=== PATIENT | male | born 1955 | race Caucasian/White ===

== ENCOUNTER 2016-11-27 09:29 | Day surgery (SDC) | payer BC ==
[~2016-11-27 09:29] MED LIST: Lactated Ringers 1,000 ML IV SCH; Midazolam 1 MG/ML 2 ML SDV ONE; Ondansetron 4 MG/2 ML SDV ONE; Propofol 200 MG/20 ML SDV ONE; Sodium Chloride 0.9% 10 ML Syringe FLUSH PRN; Sodium Chloride 0.9% 2.5 ML Syringe FLUSH PRN; fentaNYL 100 MCG/2 ML SDV ONE
--- NOTE | 2016-11-27 10:56 | PCM.PREANE ---
Preanesthetic Assessment - Anesthesia/Transfusion/Family Hx Anesthesia History: Prior Anesthesia Without Reaction Family History of Anesthesia Reaction: No Transfusion History: No Prior Transfusion(s) Intubation History: Unknown - Review of Systems General: No Symptoms Pulmonary: No Symptoms Cardiovascular: No Symptoms Gastrointestinal: Abdominal Pain Neurological: No Symptoms Other: Reports: None - Physical Assessment O2 Sat by Pulse Oximetry: 93 Respiratory Rate: 16 Vital Signs: Last Vital Signs Temp 36.2 C 11/27/16 10:20 Pulse 74 11/27/16 10:20 Resp 16 11/27/16 10:20 BP 151/74 H 11/27/16 10:20 Pulse Ox 93 L 11/27/16 10:20 Height: 1.78 m Weight: 125.192 kg ASA Class: 2 Mental Status: Alert & Oriented x3 Airway Class: Mallampati = 2 Dentition: Reports: Normal Dentition Thyro-Mental Finger Breadths: 2 Mouth Opening Finger Breadths: 3 ROM/Head Extension: Full Lungs: Clear to Auscultation, Normal Respiratory Effort Cardiovascular: Regular Rate, Regular Rhythm - Allergies Allergies/Adverse Reactions: Allergies Allergy/AdvReac Type Severity Reaction Status Date / Time No Known Allergies Allergy Verified 11/25/16 12:19 - Blood Blood Available: No - Anesthesia Plan Pre-Op Medication Ordered: None - Acknowledgements Anesthesia Type Planned: MAC Pt an Appropriate Candidate for the Planned Anesthesia: Yes Alternatives and Risks of Anesthesia Discussed w Pt/Guardian: Yes Pt/Guardian Understands and Agrees with Anesthesia Plan: Yes PreAnesthesia Questionnaire Other HEENT History: wears glasses Cardiovascular History: Reports: High Cholesterol, Hypertension Respiratory History: Reports: Sleep Apnea Other Respiratory History: uses CPAP Genitourinary History: Reports: BPH Neurological History: Reports: Brain Injury Other Neuro History: closed head injury 5 years ago with brain bleed Endocrine/Metabolic History: Reports: Diabetes, Type II, Obesity/BMI 30+ - Past Surgical History GI Surgical History: Reports: Hernia, Abdominal Other GI Surgeries/Procedures: Umbilical hernia repair - SUBSTANCE USE Smoking Status *Q: Never Smoker Recreational Drug Use History: No - HOME MEDS Home Medications: Home Meds Fenofibrate Nanocrystallized [Fenofibrate] 145 mg PO DAILY 11/25/16 [History] Olmesartan/Amlodipin/Hcthiazid [Dximyvt-Oqribz-Bpja 40-10-25Mg] 1 tab PO DAILY 10/17/17 [History] Tamsulosin HCl 2 tab PO DAILY 11/25/16 [History] sitaGLIPtin Phos/Metformin HCl [Janumet 50-1,000 MG] 1 tab PO BID 11/25/16 [ History] - CURRENT (IN HOUSE) MEDS Current Meds: Current Medications Lactated Ringer's (Ringers, Lactated) 1,000 mls @ 125 mls/hr IV ASDIRECTED VARINDER Last Admin: 11/27/16 10:22 Dose: 125 mls/hr Sodium Chloride (Saline Flush) 10 ml FLUSH ASDIRECTED PRN PRN Reason: Keep Vein Open Sodium Chloride (Saline Flush) 2.5 ml FLUSH ASDIRECTED PRN PRN Reason: Keep Vein Open Discontinued Medications Fentanyl (Sublimaze) Confirm Administered Dose 100 mcg .ROUTE .STK-MED ONE Stop: 11/27/16 08:33 Lidocaine HCl (Xylocaine-Mpf 1%) Confirm Administered Dose 5 ml .ROUTE .STK-MED ONE Stop: 11/27/16 08:32 Midazolam HCl (Versed 1 Mg/Ml) Confirm Administered Dose 2 mg .ROUTE .STK-MED ONE Stop: 11/27/16 08:33 Ondansetron HCl (Zofran) Confirm Administered Dose 4 mg .ROUTE .STK-MED ONE Stop: 11/27/16 08:32 Propofol (Diprivan 20 Ml) Confirm Administered Dose 400 mg .ROUTE .STK-MED ONE Stop: 11/27/16 08:33
--- NOTE | 2016-11-27 14:33 | PCM.OPNOTE ---
- General Post-Op/Procedure Note Date of Surgery/Procedure: 11/27/16 Operative Procedure(s): Colonoscopy Findings: Diverticulosis throughout colon. 1 descending colon polyp Pre Op Diagnosis: Change in bowel habits Post-Op Diagnosis: Diverticulosis throughout colon, 1 descending colon polyp Anesthesia Technique: MAC Primary Surgeon: Sadie Bonilla Condition: Good
--- NOTE | 2016-11-27 14:56 | PCM.POSTAN ---
POST ANESTHESIA ASSESSMENT - MENTAL STATUS Mental Status: Alert - RESPIRATORY Respiratory Status: Respiratory Rate WNL, Airway Patent, O2 Saturation Stable - CARDIOVASCULAR CV Status: Pulse Rate WNL, Blood Pressure Stable - GASTROINTESTINAL GI Status: No Symptoms - PAIN Pain Score: 0 - POST OP HYDRATION Hydration Status: Adequate & Stable - OBSERVATIONS Free Text/Narrative:: no anesthesia problems
--- NOTE | 2016-11-28 14:22 | OR ---
SURGEON: MELANIA MAYBERRY MD DATE OF PROCEDURE: 11/27/2016 PREOPERATIVE DIAGNOSIS: Change in bowel habits. POSTOPERATIVE DIAGNOSES: 1. Diverticulosis. 2. One descending colon polyp. PROCEDURE PERFORMED: Diagnostic colonoscopy. INSTRUMENT USED: Olympus colonoscope. ANESTHESIA: MAC. EXTENT OF EXAM: To the cecum. PREPARATION: Good. LIMITATIONS: None. INDICATIONS FOR EXAMINATION: The patient is a 61-year-old male with complaints of intermittent abdominal discomfort associated with cramping and flatulence. He denies any family history of colon cancer or inflammatory bowel disease. The patient was consented for a diagnostic colonoscopy. We discussed the procedure as well as expected perioperative course. We discussed the risks, including bleeding, infection, or damage to surrounding structures, including perforation. The patient verbalized understanding and wishes to proceed. PROCEDURE IN DETAIL: The patient was brought into the endoscopy suite and placed in the left lateral decubitus position. A time-out was completed verifying the patient's name, age, date of , allergies, and procedure to be performed. Monitored anesthesia care was induced and continuous oxygen was provided via nasal cannula throughout the procedure. After adequate sedation was achieved, a digital rectal exam was performed. This examination was within normal limits. A well lubricated colonoscope was inserted into the rectum and advanced under direct visualization to the level of the low cecum. The cecum was identified by both visual and anatomic landmarks. A photograph was taken of the cecal cap; however, I was unable to retroflex the scope within the cecum. The scope was then fully withdrawn while examining the color, texture, anatomy, and integrity of the mucosa from the cecum to the anal canal. The findings were consistent with diverticulosis throughout the colon. The patient also had one small sessile descending colon polyp, which was removed in piecemeal fashion via a cold biopsy forceps. The scope was then brought into the rectum and retroflexed to allow visualization of the anal canal opening. This appeared normal and a photograph was taken. The scope was then straightened out and withdrawn. The cecum to anus time was 22 minutes. The patient tolerated the procedure well and was taken to PACU in stable condition. ENDOSCOPIC DIAGNOSES: 1. Diverticulosis. 2. Descending colon polyp. RECOMMENDATION: Follow up in clinic in 2 weeks. YUVAL LIU /[id number]
== END 2016-11-27 15:14 | disposition home or self-care (01) ==
LOC: MW.SDS 09:29
PROVIDERS: ATTEND Surgery
DX: K63.5 Polyp of colon (principal); K57.30 Diverticulosis of large intestine without perforation or abscess without bleeding; N40.0 Benign prostatic hyperplasia without lower urinary tract symptoms; E11.9 Type 2 diabetes mellitus without complications; G47.33 Obstructive sleep apnea (adult) (pediatric); E66.9 Obesity, unspecified; Z79.84 Long term (current) use of oral hypoglycemic drugs; Z79.899 Other long term (current) drug therapy; Z98.890 Other specified postprocedural states; Z99.89 Dependence on other enabling machines and devices; Z68.39 Body mass index [BMI] 39.0-39.9, adult
CPT/HCPCS: 45380; 88305; J2250; J2405; J3010; J7120; 00810; J2704

== ENCOUNTER 2019-01-12 14:22 | Inpatient (IN) | payer BC ==
[2019-01-12] MEDS ORDERED: Ondansetron 4 MG/2 ML SDV IVPUSH PRN (14:30)
[2019-01-12] MEDS ORDERED: Acetaminophen 325 MG Tab PO PRN (14:30)
[2019-01-12] MEDS ORDERED: Ondansetron 4 MG Tab.DIS PO PRN (14:30)
--- NOTE | 2019-01-12 14:52 | PCM.HP.2 ---
H&P History of Present Illness - General Date of Service: 01/12/19 Admit Problem/Dx: Admission Diagnosis/Problem Admission Diagnosis/Problem Hypoxia Source of Information: Patient History Limitations: Reports: No Limitations - History of Present Illness Initial Comments - Free Text/Narative: 63-year-old male direct admit from PCP's office for hypoxia and tachycardia. Patient has a PMH of diabetes mellitus type 2, hypertension and hyperlipidemia. He was at his PCP's office earlier today for a diabetes check and was found to be hypoxic on room air and had a HR ~130's. EKG showed sinus tachycardia at PCP' s office. CXR showed cardiomegaly at PCP's office. Patient reports that he completely asymptomatic and in his normal state of health today. He denies any history of DVT, hemoptysis, recent travel or recent surgeries. He further denies any fevers, chills, blurry vision, sore throat, cough, chest pain, shortness of breath, nausea, vomiting, abdominal, diarrhea, constipation, blood in stool, blood in urine, numbness or tingling in extremities. - Related Data Allergies/Adverse Reactions: Allergies Allergy/AdvReac Type Severity Reaction Status Date / Time No Known Allergies Allergy Verified 01/12/19 17:48 Home Medications: Home Meds Olmesartan/Amlodipin/Hcthiazid [Jlpihyr-Ryphsz-Sefo 40-10-25Mg] 1 tab PO DAILY 11/25/16 [History] sitaGLIPtin Phos/Metformin HCl [Janumet 50-1,000 MG] 50 - 1,000 mg PO BIDMEALS 11/25/16 [History] Empagliflozin [Jardiance] 25 mg PO DAILY 01/12/19 [History] Fenofibrate Nanocrystallized [Fenofibrate] 145 mg PO DAILY 01/12/19 [History] Past Medical History Other HEENT History: wears glasses Cardiovascular History: Reports: High Cholesterol, Hypertension Respiratory History: Reports: Sleep Apnea Other Respiratory History: uses CPAP Genitourinary History: Reports: BPH Neurological History: Reports: Brain Injury Other Neuro History: closed head injury 5 years ago with brain bleed Endocrine/Metabolic History: Reports: Diabetes, Type II, Obesity/BMI 30+ - Past Surgical History GI Surgical History: Reports: Hernia, Abdominal Other GI Surgeries/Procedures: Umbilical hernia repair H&P Review of Systems - Review of Systems: Review Of Systems: Comprehensive ROS is negative, except as noted in HPI. Exam - Exam Exam: See Below - Vital Signs Weight: 213 lb 3 oz - Exam General: Alert, Oriented, Cooperative, Other (NAD) HEENT: Conjunctiva Clear, EOMI, Hearing Intact, Mucosa Moist & [place], Posterior Pharynx Clear, Pupils Equal, Pupils Reactive Neck: Supple, Trachea Midline Lungs: Clear to Auscultation, Normal Respiratory Effort Cardiovascular: Irregular Rhythm, Tachycardia GI/Abdominal Exam: Normal Bowel Sounds, Soft, Non-Tender, No Distention Extremities: Normal Inspection, No Pedal Edema, Other (No calf tenderness bilaterally.) Peripheral Pulses: 2+: Radial (L), Radial (R), Posterior Tibial (L), Posterior Tibial (R) Skin: Warm, Dry, Intact Neurological: Cranial Nerves Intact, Strength Equal Bilateral, Normal Tone, Sensation Intact Neuro Extensive - Mental Status: Alert, Oriented x3, Normal Mood/Affect - Patient Data Result Diagrams: 01/12/19 14:47 01/12/19 14:47 Problem List Initiated/Reviewed/Updated: Yes Orders Last 24hrs: Active Orders 24 hr Category Date Time Status Patient Status [ADT] Routine ADT 01/12/19 14:30 Active Accu Check [Blood Glucose Check, Bedside] [RC] TIDAC Care 01/12/19 14:48 Active EKG Documentation Completion [RC] STAT Care 01/12/19 14:30 Active Oxygen Therapy [RC] PRN Care 01/12/19 14:30 Active Telemetry Monitoring [Cardiac Monitoring] [RC] . Care 01/12/19 14:34 Active DIRECTED Up ad Enriqueta [RC] ASDIRECTED Care 01/12/19 14:30 Active VTE/DVT Education [RC] PER UNIT ROUTINE Care 01/12/19 14:30 Active Vital Signs [RC] Q4H Care 01/12/19 14:30 Active [employer] Diet [DIET] Diet 01/12/19 Lunch Active Chest 1V Frontal [CR] Stat Exams 01/12/19 14:30 Ordered CBC WITH AUTO DIFF [HEME] Stat Lab 01/12/19 14:33 Ordered COMPREHENSIVE METABOLIC PN,CMP [CHEM] Stat Lab 01/12/19 14:33 Ordered MAGNESIUM [CHEM] Stat Lab 01/12/19 14:33 Ordered PHOSPHORUS [CHEM] Stat Lab 01/12/19 14:33 Ordered TROPONIN I [CHEM] Stat Lab 01/12/19 14:33 Ordered TSH [CHEM] Stat Lab 01/12/19 14:33 Ordered Acetaminophen [Tylenol] Med 01/12/19 14:30 Active 650 mg PO Q4H PRN Insulin Aspart [NovoLOG] Med 01/12/19 17:00 Ordered See Protocol SUBCUT TIDAC Ondansetron [Zofran ODT] Med 01/12/19 14:30 Active 4 mg PO Q4H PRN Ondansetron [Zofran] Med 01/12/19 14:30 Active 4 mg IVPUSH Q4H PRN Resuscitation Status Routine Resus Stat 01/12/19 14:30 Ordered Medication Orders Acetaminophen (Tylenol) 650 mg PO Q4H PRN PRN Reason: Pain (Mild 1-3)/fever Insulin Aspart (Novolog) 0 unit SUBCUT TIDAC VARINDER; Protocol Ondansetron HCl (Zofran Odt) 4 mg PO Q4H PRN PRN Reason: nausea, able to take PO Ondansetron HCl (Zofran) 4 mg IVPUSH Q4H PRN PRN Reason: Nausea Assessment/Plan Comment:: Assessment: 1. Atrial fibrillation with RVR, new-onset. 2. Past medical history of DM type 2, HTN and hyperlipidemia. Plan: 1. Will order troponin, CBC, CMP, TSH, magnesium and phosphorus. Will order CXR and ECHO. Patient will be on telemetry. Patient's afib still not rate controlled after 2 IV pushes of diltiazem. Will start diltiazem drip. Will start Eliquis 5 mg PO BID. 2. For diabetes mellitus type 2, SSI with accucheks.
[2019-01-12] MEDS ORDERED: DILTIAZEM IV SCH (15:15)
[2019-01-12] MEDS ORDERED: SODIUM CHLORIDE 0.9% IV SCH (15:15)
[2019-01-12] MEDS ORDERED: Diltiazem 25 MG/5 ML SDV IVPUSH ONE (15:23)
[2019-01-12] MEDS ORDERED: Apixaban 5 MG Tab PO SCH (15:35)
[2019-01-12 15:40] LABS: BLOOD UREA NITROGEN,BUN 21 mg/dL (7.0-18.0); CARBON DIOXIDE,CO2 22.1 mmol/L (21.0-32.0); CHLORIDE,CL 101 mmol/L (98-107); GLUCOSE RANDOM 158 mg/dL (74-106); POTASSIUM,K 3.6 mmol/L (3.5-5.1); SODIUM,NA 138 mmol/L (136-148)
[2019-01-12] MEDS ORDERED: Diltiazem 25 MG/5 ML SDV IVPUSH STA (16:38)
[2019-01-12] MEDS ORDERED: Potassium Chloride 20 MEQ Tab.ER PO ONE (17:48)
[2019-01-12] MEDS: Insulin Aspart 100 Units/ML 3 ML Pen SUBCUT SCH (17:49)
[2019-01-12] MEDS: Diltiazem 125 MG in Sodium Chloride 0.9% 100 ML IV SCH (18:29)
--- NOTE | 2019-01-12 19:51 | PN ---
JOSE Physician - Brief Progress [id number]/04/2019 19:48[facility] Jose Boles, [place] [facility] - LITO SORIADate of Service 01/12/2019 19:48HPI/Events of N ote eICU admission note:63-year-old male presenting as a direct admit from his primary care 's office after he presented with hypoxemia and tachycardia. Patient found to be in A. fib with RVR. Patient has past medical history of diabetes mellitus type 2 hypertension hyperlipidemia morbid obe sity and obstructive sleep apnea on CPAP. He presents today with a hemoglobin of 18.2 and hematocrit of 52.5 which is suggestive of untreated hypoxemia.On video screen monitor exam:63-year-old male in no acute distress lying comfortably in bedVital signs: Heart rate 134 and A. fib with RVR SPO2 90% re spiratory 24 blood pressure 113/74BMI is greater than 30eICU assessment:A. fib with RVR new onsetHypo xemic respiratory failureHistory of metabolic syndrome with diabetes mellitus type 2 hypertension hyp erlipidemia obstructive sleep apneaOther chronic comorbiditieseICU recommendations:Echocardiogram is pendingPatient was started on Eliquis by excellent bedside attending as well as metoprololPatient is on Cardizem drip and heart rate is yet to be controlledWould encourage weight loss as well as a CPAP BiPAP re-titration and overnight pulse oximetry to assure appropriate oxygenation statusGI prophylaxi s not necessary as patient is able to eat DVT was provided by EliquisWould consider ruling out underl marixa pulmonary emboli syndrome if the patient is truly hypoxemic, patient has been started on Eliquis but would consider Doppler in bilateral lower extremities in the a.m., or checking echocardiogram fo r elevated right-sided heart pressuresTroponin is negativeConsider re-titration of sleep study outpat ientMonitor daily labsPlease call with any changes/recommendations that are needed thank you very muc h for involving the ICU in the care management of your patientInterventions Major-Arrhythmia - evalua tion and managementMinor-Clinical assessment - ordering diagnostic tests, Communication with other althcare providers and/or family, Routine modifications to care plan (e.g. PRN medications for pain, fever)
[2019-01-12] MEDS ORDERED: Metoprolol Tartrate 25 MG Tab PO SCH (21:00)
[2019-01-13 05:52] LABS: CARBON DIOXIDE,CO2 25.9 mmol/L (21.0-32.0); POTASSIUM,K 4.1 mmol/L (3.5-5.1)
[2019-01-13 06:06] LABS: HEMOGLOBIN A1C 7.6 % (4.5-6.2)
[2019-01-13] MEDS: Metoprolol Tartrate 25 MG Tab PO SCH ×2 (06:35→16:55)
[2019-01-13] MEDS: Apixaban 5 MG Tab PO SCH ×2 (06:35→21:32)
[2019-01-13] MEDS: Insulin Aspart 100 Units/ML 3 ML Pen SUBCUT SCH ×3 (07:45→17:24)
[2019-01-13] MEDS ORDERED: AMLODIPIN PO SCH (09:00)
[2019-01-13] MEDS ORDERED: HCTHIAZID PO SCH (09:00)
[2019-01-13] MEDS ORDERED: OLMESARTAN PO SCH (09:00)
--- NOTE | 2019-01-13 11:40 | PN ---
THC Physician - Brief Progress [id number]/05/2019 11:33[facility] Jose Boles, [place] - MELODYN (ANATOLYN) - LITO SORIADate of Service 01/13/2019 11:33HPI/Events of N ote eICU Progress [id number] admitted for afib RVR. History obtained primarily from review of EMR.Camera exam: Laying in bed. Vitals monitor reviewed, HR 128s, does not appear to be on any active IV dripsV itals: reviewedLabs: reviewedRadiology: reviewedMeds: reviewedeICU Impression and Recommendations:Atr ial Fibrillation with Rapid Ventricular responseTarget Mg > 2, K>4Will defer anticoagulation to prim judit serviceFor rate control, recommend target rate of <110bpm. Will defer choice of rate control agen t to primary service, consider IV push metoprolol, IV push diltiazem (if no concern for underlying he art failure). Should these measures fail can consider continuous rate control drip (such as diltiazem ). Should patientxs blood pressure fail to tolerate medications, consider alternative agent such as d igoxin. Should patient become unstable, recommend synchronized cardioversion (we are available to ass ist with this if desired).Will await TTE results. Consider D-dimer to rule out VTE.DVT and GI prophyl axis as appropriate.We are available to assist in further clarification, or implementation of any of the above recommendations if desired by primary service.Thank you for allowing us to participate in t he care of this patient.The above note transcribed via dictation software. Please excuse any errors.I nterventions Major-Arrhythmia - evaluation and management
--- NOTE | 2019-01-13 11:56 | PCM.PN ---
- General Info Date of Service: 01/13/19 Subjective Update: No complaints at bedside this morning. Patient asymptomatic. Tolerating oral diet. - Patient Data Vitals - Most Recent: Last Vital Signs Temp 97.5 F 01/13/19 08:00 Pulse 64 01/13/19 06:35 Resp 25 H 01/13/19 08:00 BP 94/58 L 01/13/19 08:00 Pulse Ox 91 L 01/13/19 08:00 Weight - Most Recent: 213 lb 3 oz I&O - Last 24 Hours: Intake & Output 01/12/19 01/13/19 01/13/19 22:59 06:59 14:59 Intake Total 500 Output Total 200 Balance 300 Lab Results Last 24 Hours: Laboratory Results - last 24 hr 01/12/19 01/12/19 01/12/19 Range/Units 14:47 14:47 17:10 WBC 9.85 (4.0-11.0) K/uL RBC 6.48 H (4.50-5.90) M/uL Hgb 18.2 H (13.0-17.0) g/dL Hct 52.5 H (38.0-50.0) % MCV 81.0 (80.0-98.0) fL MCH 28.1 (27.0-32.0) pg MCHC 34.7 (31.0-37.0) g/dL RDW Std Deviation 42.1 (28.0-62.0) fl RDW Coeff of [place]ady 15 (11.0-15.0) % Plt Count 236 (150-400) K/uL MPV 10.70 (7.40-12.00) fL Neut % (Auto) 71.1 (48.0-80.0) % Lymph % (Auto) 16.2 (16.0-40.0) % [place] % (Auto) 9.6 (0.0-15.0) % Eos % (Auto) 2.4 (0.0-7.0) % Baso % (Auto) 0.7 (0.0-1.5) % Neut # (Auto) 7.0 H (1.4-5.7) K/uL Lymph # (Auto) 1.6 (0.6-2.4) K/uL [place] # (Auto) 1.0 H (0.0-0.8) K/uL Eos # (Auto) 0.2 (0.0-0.7) K/uL Baso # (Auto) 0.1 (0.0-0.1) K/uL Nucleated RBC % 0.0 /100WBC Nucleated RBCs # 0 K/uL Sodium 138 (136-148) mmol/L Potassium 3.6 (3.5-5.1) mmol/L Chloride 101 (98-107) mmol/L Carbon Dioxide 22.1 (21.0-32.0) mmol/L BUN 21 H (7.0-18.0) mg/dL Creatinine 1.2 (0.8-1.3) mg/dL Est Cr Clr Drug Dosing 63.01 mL/min Estimated GFR (MDRD) > 60.0 ml/min Glucose 158 H (74-106) mg/dL POC Glucose 108 (60-110) mg/dL Hemoglobin A1c (4.5-6.2) % Calcium 8.8 (8.5-10.1) mg/dL Phosphorus 3.3 (2.6-4.7) mg/dL Magnesium 2.0 (1.8-2.4) mg/dL Total Bilirubin 0.4 (0.2-1.0) mg/dL AST 16 (15-37) IU/L ALT 26 (14-63) IU/L Alkaline Phosphatase 66 (46-116) U/L Troponin I < 0.050 (0.000-0.056) ng/mL B-Natriuretic Peptide (<100) PG/ML Total Protein 8.1 (6.4-8.2) g/dL Albumin 4.4 (3.4-5.0) g/dL Globulin 3.7 (2.6-4.0) g/dL Albumin/Globulin Ratio 1.2 (0.9-1.6) Triglycerides (0-200) mg/dL Cholesterol (50-200) mg/dL LDL Cholesterol, Calc (60-180) mg/dL VLDL Cholesterol (5-55) mg/dL HDL Cholesterol (40-60) mg/dL Cholesterol/HDL Ratio (3.3-6.0) TSH 3rd Generation 2.04 (0.36-3.74) uIU/mL 01/13/19 01/13/19 01/13/19 Range/Units 05:15 05:15 05:15 WBC 10.57 (4.0-11.0) K/uL RBC 6.06 H (4.50-5.90) M/uL Hgb 17.2 H (13.0-17.0) g/dL Hct 49.7 (38.0-50.0) % MCV 82.0 (80.0-98.0) fL MCH 28.4 (27.0-32.0) pg MCHC 34.6 (31.0-37.0) g/dL RDW Std Deviation 42.9 (28.0-62.0) fl RDW Coeff of [place]ady 15 (11.0-15.0) % Plt Count 227 (150-400) K/uL MPV 10.80 (7.40-12.00) fL Neut % (Auto) 66.5 (48.0-80.0) % Lymph % (Auto) 17.9 (16.0-40.0) % [place] % (Auto) 11.2 (0.0-15.0) % Eos % (Auto) 3.9 (0.0-7.0) % Baso % (Auto) 0.5 (0.0-1.5) % Neut # (Auto) 7.0 H (1.4-5.7) K/uL Lymph # (Auto) 1.9 (0.6-2.4) K/uL [place] # (Auto) 1.2 H (0.0-0.8) K/uL Eos # (Auto) 0.4 (0.0-0.7) K/uL Baso # (Auto) 0.1 (0.0-0.1) K/uL Nucleated RBC % 0.0 /100WBC Nucleated RBCs # 0 K/uL Sodium 140 (136-148) mmol/L Potassium 4.1 (3.5-5.1) mmol/L Chloride 105 (98-107) mmol/L Carbon Dioxide 25.9 (21.0-32.0) mmol/L BUN 22 H (7.0-18.0) mg/dL Creatinine 1.5 H (0.8-1.3) mg/dL Est Cr Clr Drug Dosing 50.41 mL/min Estimated GFR (MDRD) 47.3 ml/min Glucose 172 H (74-106) mg/dL POC Glucose (60-110) mg/dL Hemoglobin A1c 7.6 H (4.5-6.2) % Calcium 8.7 (8.5-10.1) mg/dL Phosphorus (2.6-4.7) mg/dL Magnesium (1.8-2.4) mg/dL Total Bilirubin 0.5 (0.2-1.0) mg/dL AST 14 L (15-37) IU/L ALT 25 (14-63) IU/L Alkaline Phosphatase 51 (46-116) U/L Troponin I (0.000-0.056) ng/mL B-Natriuretic Peptide (<100) PG/ML Total Protein 6.8 (6.4-8.2) g/dL Albumin 3.7 (3.4-5.0) g/dL Globulin 3.1 (2.6-4.0) g/dL Albumin/Globulin Ratio 1.2 (0.9-1.6) Triglycerides 352 H (0-200) mg/dL Cholesterol 139 (50-200) mg/dL LDL Cholesterol, Calc 43 L (60-180) mg/dL VLDL Cholesterol 70 H (5-55) mg/dL HDL Cholesterol 26 L (40-60) mg/dL Cholesterol/HDL Ratio 5.3 (3.3-6.0) TSH 3rd Generation (0.36-3.74) uIU/mL 01/13/19 01/13/19 01/13/19 Range/Units 05:45 07:45 11:47 WBC (4.0-11.0) K/uL RBC (4.50-5.90) M/uL Hgb (13.0-17.0) g/dL Hct (38.0-50.0) % MCV (80.0-98.0) fL MCH (27.0-32.0) pg MCHC (31.0-37.0) g/dL RDW Std Deviation (28.0-62.0) fl RDW Coeff of [place] (11.0-15.0) % Plt Count (150-400) K/uL MPV (7.40-12.00) fL Neut % (Auto) (48.0-80.0) % Lymph % (Auto) (16.0-40.0) % [place] % (Auto) (0.0-15.0) % Eos % (Auto) (0.0-7.0) % Baso % (Auto) (0.0-1.5) % Neut # (Auto) (1.4-5.7) K/uL Lymph # (Auto) (0.6-2.4) K/uL [place] # (Auto) (0.0-0.8) K/uL Eos # (Auto) (0.0-0.7) K/uL Baso # (Auto) (0.0-0.1) K/uL Nucleated RBC % /100WBC Nucleated RBCs # K/uL Sodium (136-148) mmol/L Potassium (3.5-5.1) mmol/L Chloride (98-107) mmol/L Carbon Dioxide (21.0-32.0) mmol/L BUN (7.0-18.0) mg/dL Creatinine (0.8-1.3) mg/dL Est Cr Clr Drug Dosing mL/min Estimated GFR (MDRD) ml/min Glucose (74-106) mg/dL POC Glucose 149 H 150 H (60-110) mg/dL Hemoglobin A1c (4.5-6.2) % Calcium (8.5-10.1) mg/dL Phosphorus (2.6-4.7) mg/dL Magnesium (1.8-2.4) mg/dL Total Bilirubin (0.2-1.0) mg/dL AST (15-37) IU/L ALT (14-63) IU/L Alkaline Phosphatase (46-116) U/L Troponin I (0.000-0.056) ng/mL B-Natriuretic Peptide 37 (<100) PG/ML Total Protein (6.4-8.2) g/dL Albumin (3.4-5.0) g/dL Globulin (2.6-4.0) g/dL Albumin/Globulin Ratio (0.9-1.6) Triglycerides (0-200) mg/dL Cholesterol (50-200) mg/dL LDL Cholesterol, Calc (60-180) mg/dL VLDL Cholesterol (5-55) mg/dL HDL Cholesterol (40-60) mg/dL Cholesterol/HDL Ratio (3.3-6.0) TSH 3rd Generation (0.36-3.74) uIU/mL Med Orders - Current: Current Medications Acetaminophen (Tylenol) 650 mg PO Q4H PRN PRN Reason: Pain (Mild 1-3)/fever Apixaban (Eliquis) 5 mg PO BID [facility] Last Admin: 01/13/19 06:35 Dose: 5 mg Diltiazem HCl 125 mg/ Sodium (Chloride) 125 mls @ 5 mls/hr IV NOW [facility]; Protocol Last Titration: 01/13/19 07:36 Dose: 0 mg/hr, 0 mls/hr Insulin Aspart (Novolog) 0 unit SUBCUT TIDAC [facility]; Protocol Last Admin: 01/13/19 07:45 Dose: Not Given Metoprolol Tartrate (Lopressor) 50 mg PO Q12H [facility] Last Admin: 01/13/19 06:35 Dose: 50 mg Ondansetron HCl (Zofran Odt) 4 mg PO Q4H PRN PRN Reason: nausea, able to take PO Ondansetron HCl (Zofran) 4 mg IVPUSH Q4H PRN PRN Reason: Nausea Discontinued Medications Apixaban (Eliquis) 5 mg PO BID [facility] Stop: 01/12/19 15:36 Last Admin: 01/12/19 16:41 Dose: 5 mg Diltiazem HCl (Diltiazem) 20 mg IVPUSH ONETIME ONE Stop: 01/12/19 15:24 Last Admin: 01/12/19 15:31 Dose: 20 mg Diltiazem HCl (Diltiazem) 20 mg IVPUSH ONETIME STA Stop: 01/12/19 16:39 Last Admin: 01/12/19 16:50 Dose: 20 mg Diltiazem HCl 20 mg/ Sodium (Chloride) 104 mls @ 5 mls/hr IV ASDIRECTED [facility] Metoprolol Tartrate (Lopressor) 25 mg PO Q12H [facility] Last Admin: 01/12/19 21:17 Dose: 25 mg Olmesartan/Amlodipin /Hcthiazid [Olmsrtn- Amldpn-Hctz 40-10 1 each PO DAILY [facility] Potassium Chloride (Klor-Con M20) 40 meq PO ONETIME ONE Stop: 01/12/19 17:49 Last Admin: 01/12/19 18:21 Dose: 40 meq - Exam General: Alert, Oriented, Cooperative, No Acute Distress Lungs: Clear to Auscultation, Normal Respiratory Effort Cardiovascular: Irregular Rhythm, Tachycardia GI/Abdominal Exam: Normal Bowel Sounds, Soft, Non-Tender, No Distention Extremities: Normal Inspection, Pedal Edema - Problem List Review Problem List Initiated/Reviewed/Updated: Yes - My Orders Last 24 Hours: My Active Orders 01/12/19 14:30 Oxygen Therapy [RC] PRN Up ad Enriqueta [RC] ASDIRECTED VTE/DVT Education [RC] PER UNIT ROUTINE Vital Signs [RC] Q1H Acetaminophen [Tylenol] 650 mg PO Q4H PRN Ondansetron [Zofran ODT] 4 mg PO Q4H PRN Ondansetron [Zofran] 4 mg IVPUSH Q4H PRN Resuscitation Status Routine 01/12/19 14:34 Telemetry Monitoring [Cardiac Monitoring] [RC] Q8H 01/12/19 14:48 Accu Check [Blood Glucose Check, Bedside] [RC] TIDAC 01/12/19 14:52 Admission Status [Patient Status] [ADT] Routine 01/12/19 15:14 Echo Comp wo Cont [US] Urgent 01/12/19 17:00 Insulin Aspart [NovoLOG] See Protocol SUBCUT TIDAC 01/12/19 Lunch [employer] Diet [DIET] 01/13/19 06:00 Apixaban [Eliquis] 5 mg PO BID - Plan Plan:: Assessment: 1. Atrial fibrillation with RVR. 2. Acute hypoxic respiratory failure. 3. Past medical history of DM type 2, HTN and hyperlipidemia. Plan: 1. For atrial fibrillation with RVR, diltiazem drip was discontinued this morning and patient started on metoprolol 50 mg BID. Patient is currently not rate controlled and HR is 100-120's. ECHO is currently pending. Started on Eliquis 5 mg PO BID. 2. For acute hypoxic respiratory failure, will order CXR and BNP. Encouraged incentive spirometer. 3. For diabetes mellitus type 2, SSI with accucheks.
[2019-01-13] MEDS ORDERED: Sodium Chloride 0.9% 500 ML IV ONE (11:59)
[2019-01-13] MEDS ORDERED: Diltiazem 25 MG/5 ML SDV IVPUSH ONE (12:00)
--- NOTE | 2019-01-13 12:06 | CR ---
EXAM DATE: 01/12/19 PATIENT'S AGE: 63 Chest: Two views of the chest were obtained. Comparison: Prior chest x-ray of 01/12/19. Heart size at the upper limits of normal. Tortuous thoracic aorta is noted. Stable pleural thickening is noted along the lateral chest del rosario which is more prominent on the right side. Lungs are clear with no acute parenchymal change. Impression: 1. Stable findings from prior chest x-ray. 2. Nothing acute is definitely appreciated. Diagnostic code #2 This report was dictated in [place] Standard Time Report Signed by Proxy. KIP
[2019-01-13] MEDS: Diltiazem 125 MG in Sodium Chloride 0.9% 100 ML IV SCH (14:26)
[2019-01-13] MEDS ORDERED: Metoprolol Succinate 25 MG Tab.ER PO ONE (22:48)
--- NOTE | 2019-01-13 23:00 | PN ---
THC Physician - Brief Progress [id number]/05/2019 22:58[facility] [place] - [place] - LITO SORIADate of Service 01/13/2019 22:58HPI/Events of [place] Bedside RN requesting for oral medicines for atrial fibrillation RVR on Cardizem at 5. Admitted for new onset A. fib with RVR. Started on metoprolol 50 mg twice a day from today. Received 25 mg l ast night. Heart rate jumping from 100-1 20. Map more than 70. On anticoagulation.-Toprol-XL 25 mg oral once for now.-Continue other care.-2D echo report is pending.Interventions Intermediate-Arrhyth tom - evaluation and management, Communication with other healthcare providers and/or family, Diagnos tic test evaluation
[2019-01-14] MEDS: Metoprolol Tartrate 25 MG Tab PO SCH (05:17)
[2019-01-14 06:52] LABS: CARBON DIOXIDE,CO2 27.2 mmol/L (21.0-32.0); POTASSIUM,K 4.4 mmol/L (3.5-5.1)
[2019-01-14] MEDS ORDERED: Diltiazem 100 MG in Sodium Chloride 0.9% 100 ML IV SCH (08:13)
[2019-01-14] MEDS: Insulin Aspart 100 Units/ML 3 ML Pen SUBCUT SCH ×3 (08:14→18:00)
--- NOTE | 2019-01-14 08:34 | PN ---
THC Physician - Brief Progress [id number]/06/2019 08:24[facility] Jose Boles, [place] - [place] - LITO SORIADate of Service 01/14/2019 08:24HPI/Events of [place] eICU Progress [id number] admitted for afib RVR. History obtained primarily from review of EMR.Camera exam: Laying in bed. Vitals monitor reviewed, HR 80sactive IV dripsVitals: reviewedLabs: reviewedRad iology: reviewedMeds: reviewedeICU Impression and Recommendations:Atrial Fibrillation with Rapid Vent ricular response, now rate controlledTarget Mg > 2, K>4Will defer anticoagulation to primary service, agree with ApixabanAgree with BID dosing of metoprolol tartrate 50mg q12h as part of a rate control strategyEchocardiography pending. Should echocardiography fail to show structural cardiac abnormaliti es, can consider involvement of cardiology for comment on utility of pursuit of rhythm control strate gyLeukocytosis of uncertain significance, in light of atrial fibrillation with RVR technically meets SIRS criteria. Suggest rule out of infectious etiology - recommend blood cultures, urinalysis, and re peat chest x-ray to complete work up.Diabetes MellitusHyperglycemiaPRN insulin per institutional slid ing scale protocol with scheduled glucose checksRecommend targeted glucose goal of <180DVT and GI pro phylaxis as appropriate.We are available to assist in further clarification, or implementation of any of the aboverecommendations if desired by primary service.Thank you for allowing us to participate i n the care of this patient.The above note transcribed via dictation software. Please excuse any error s.Interventions Major-Arrhythmia - evaluation and management
[2019-01-14] MEDS: Apixaban 5 MG Tab PO SCH ×2 (09:08→20:58)
[2019-01-14] MEDS ORDERED: Metoprolol Tartrate 25 MG Tab PO ONE (09:19)
--- NOTE | 2019-01-14 15:30 | PCM.PN ---
- General Info Date of Service: 01/14/19 Subjective Update: Patient asymptomatic. Slept well, tolerating PO, having bowel movements. Estee shortness of breath, chest pain, dizziness or palpitations. - Patient Data Vitals - Most Recent: Last Vital Signs Temp 97.5 F 01/14/19 12:00 Pulse 90 01/14/19 10:05 Resp 21 H 01/14/19 14:00 BP 110/68 01/14/19 14:00 Pulse Ox 96 01/14/19 14:00 Weight - Most Recent: 213 lb 3 oz I&O - Last 24 Hours: Intake & Output 01/14/19 01/14/19 01/14/19 06:59 14:59 22:59 Intake Total 959 1999 Output Total 1125 Balance -166 1999 Lab Results Last 24 Hours: Laboratory Results - last 24 hr 01/13/19 01/14/19 01/14/19 Range/Units 17:11 06:13 06:13 WBC 12.53 H (4.0-11.0) K/uL RBC 6.41 H (4.50-5.90) M/uL Hgb 18.1 H (13.0-17.0) g/dL Hct 53.7 H (38.0-50.0) % MCV 83.8 (80.0-98.0) fL MCH 28.2 (27.0-32.0) pg MCHC 33.7 (31.0-37.0) g/dL RDW Std Deviation 44.9 (28.0-62.0) fl RDW Coeff of [place] 15 (11.0-15.0) % Plt Count 241 (150-400) K/uL MPV 10.60 (7.40-12.00) fL Neut % (Auto) 72.8 (48.0-80.0) % Lymph % (Auto) 15.6 L (16.0-40.0) % [place] % (Auto) 7.3 (0.0-15.0) % Eos % (Auto) 3.8 (0.0-7.0) % Baso % (Auto) 0.5 (0.0-1.5) % Neut # (Auto) 9.1 H (1.4-5.7) K/uL Lymph # (Auto) 2.0 (0.6-2.4) K/uL [place] # (Auto) 0.9 H (0.0-0.8) K/uL Eos # (Auto) 0.5 (0.0-0.7) K/uL Baso # (Auto) 0.1 (0.0-0.1) K/uL Nucleated RBC % 0.0 /100WBC Nucleated RBCs # 0 K/uL Sodium 139 (136-148) mmol/L Potassium 4.4 (3.5-5.1) mmol/L Chloride 103 (98-107) mmol/L Carbon Dioxide 27.2 (21.0-32.0) mmol/L BUN 24 H (7.0-18.0) mg/dL Creatinine 1.3 (0.8-1.3) mg/dL Est Cr Clr Drug Dosing 58.16 mL/min Estimated GFR (MDRD) 55.8 ml/min Glucose 151 H (74-106) mg/dL POC Glucose 109 (60-110) mg/dL Calcium 8.9 (8.5-10.1) mg/dL Magnesium (1.8-2.4) mg/dL Total Bilirubin 0.7 (0.2-1.0) mg/dL AST 14 L (15-37) IU/L ALT 23 (14-63) IU/L Alkaline Phosphatase 52 (46-116) U/L Total Protein 7.3 (6.4-8.2) g/dL Albumin 3.8 (3.4-5.0) g/dL Globulin 3.5 (2.6-4.0) g/dL Albumin/Globulin Ratio 1.1 (0.9-1.6) 01/14/19 01/14/19 Range/Units 06:13 11:58 WBC (4.0-11.0) K/uL RBC (4.50-5.90) M/uL Hgb (13.0-17.0) g/dL Hct (38.0-50.0) % MCV (80.0-98.0) fL MCH (27.0-32.0) pg MCHC (31.0-37.0) g/dL RDW Std Deviation (28.0-62.0) fl RDW Coeff of [place] (11.0-15.0) % Plt Count (150-400) K/uL MPV (7.40-12.00) fL Neut % (Auto) (48.0-80.0) % Lymph % (Auto) (16.0-40.0) % [place] % (Auto) (0.0-15.0) % Eos % (Auto) (0.0-7.0) % Baso % (Auto) (0.0-1.5) % Neut # (Auto) (1.4-5.7) K/uL Lymph # (Auto) (0.6-2.4) K/uL [place] # (Auto) (0.0-0.8) K/uL Eos # (Auto) (0.0-0.7) K/uL Baso # (Auto) (0.0-0.1) K/uL Nucleated RBC % /100WBC Nucleated RBCs # K/uL Sodium (136-148) mmol/L Potassium (3.5-5.1) mmol/L Chloride (98-107) mmol/L Carbon Dioxide (21.0-32.0) mmol/L BUN (7.0-18.0) mg/dL Creatinine (0.8-1.3) mg/dL Est Cr Clr Drug Dosing mL/min Estimated GFR (MDRD) ml/min Glucose (74-106) mg/dL POC Glucose 159 H (60-110) mg/dL Calcium (8.5-10.1) mg/dL Magnesium 2.2 (1.8-2.4) mg/dL Total Bilirubin (0.2-1.0) mg/dL AST (15-37) IU/L ALT (14-63) IU/L Alkaline Phosphatase (46-116) U/L Total Protein (6.4-8.2) g/dL Albumin (3.4-5.0) g/dL Globulin (2.6-4.0) g/dL Albumin/Globulin Ratio (0.9-1.6) Med Orders - Current: Current Medications Acetaminophen (Tylenol) 650 mg PO Q4H PRN PRN Reason: Pain (Mild 1-3)/fever Apixaban (Eliquis) 5 mg PO BID [facility] Last Admin: 01/14/19 09:08 Dose: 5 mg Diltiazem HCl (Cardizem) 30 mg PO Q6HR [facility] Diltiazem HCl 125 mg/ Sodium (Chloride) 125 mls @ 5 mls/hr IV NOW REPLACED BY [facility]; Protocol Last Titration: 01/14/19 12:32 Dose: 0 mg/hr, 0 mls/hr Diltiazem HCl 100 mg/ Sodium (Chloride) 100 mls @ 5 mls/hr IV NOW REPLACED BY [facility]; Protocol Insulin Aspart (Novolog) 0 unit SUBCUT TIDAC [facility]; Protocol Last Admin: 01/14/19 13:18 Dose: Not Given Ondansetron HCl (Zofran Odt) 4 mg PO Q4H PRN PRN Reason: nausea, able to take PO Ondansetron HCl (Zofran) 4 mg IVPUSH Q4H PRN PRN Reason: Nausea Discontinued Medications Apixaban (Eliquis) 5 mg PO BID [facility] Stop: 01/12/19 15:36 Last Admin: 01/12/19 16:41 Dose: 5 mg Diltiazem HCl (Diltiazem) 20 mg IVPUSH ONETIME ONE Stop: 01/12/19 15:24 Last Admin: 01/12/19 15:31 Dose: 20 mg Diltiazem HCl (Diltiazem) 20 mg IVPUSH ONETIME STA Stop: 01/12/19 16:39 Last Admin: 01/12/19 16:50 Dose: 20 mg Diltiazem HCl (Diltiazem) 20 mg IVPUSH ONETIME ONE Stop: 01/13/19 12:01 Last Admin: 01/13/19 12:53 Dose: Not Given Diltiazem HCl 20 mg/ Sodium (Chloride) 104 mls @ 5 mls/hr IV ASDIRECTED REPLACED BY [facility] Sodium Chloride (Normal Saline) 500 mls @ 999 mls/hr IV STAT ONE Stop: 01/13/19 12:29 Last Admin: 01/13/19 12:31 Dose: 999 mls/hr Metoprolol Succinate (Toprol Xl) 25 mg PO ONETIME ONE Stop: 01/13/19 22:49 Last Admin: 01/13/19 23:13 Dose: 25 mg Metoprolol Tartrate (Lopressor) 25 mg PO Q12H REPLACED BY [facility] Last Admin: 01/12/19 21:17 Dose: 25 mg Metoprolol Tartrate (Lopressor) 50 mg PO Q12H REPLACED BY [facility] Last Admin: 01/14/19 05:17 Dose: 50 mg Metoprolol Tartrate (Lopressor) 25 mg PO ONETIME ONE Stop: 01/14/19 09:20 Last Admin: 01/14/19 10:05 Dose: 25 mg Metoprolol Tartrate (Lopressor) 75 mg PO Q12H REPLACED BY [facility] Olmesartan/Amlodipin /Hcthiazid [Olmsrtn- Amldpn-Hctz 40-10 1 each PO DAILY REPLACED BY [facility] Potassium Chloride (Klor-Con M20) 40 meq PO ONETIME ONE Stop: 01/12/19 17:49 Last Admin: 01/12/19 18:21 Dose: 40 meq - Exam General: Alert, Oriented, Cooperative, No Acute Distress Lungs: Clear to Auscultation, Normal Respiratory Effort Cardiovascular: Regular Rate, Irregular Rhythm GI/Abdominal Exam: Normal Bowel Sounds, Soft, Non-Tender, No Distention Extremities: Normal Inspection, No Pedal Edema - Problem List Review Problem List Initiated/Reviewed/Updated: Yes - My Orders Last 24 Hours: My Active Orders 01/14/19 13:59 EKG Documentation Completion [RC] STAT 01/14/19 18:00 Diltiazem IR [Cardizem] 30 mg PO Q6HR - Plan Plan:: Assessment: 1. Atrial fibrillation with RVR. 2. Acute hypoxic respiratory failure, resolved. 3. Past medical history of DM type 2, HTN and hyperlipidemia. Plan: 1. For atrial fibrillation with RVR, patient restarted on diltiazem drip and will start PO diltiazem IR 30 mg q6h. Continue Eliquis 5 mg PO BID. 2. For diabetes mellitus type 2, SSI with accucheks.
[2019-01-14] MEDS: Diltiazem 100 MG in Sodium Chloride 0.9% 100 ML IV SCH (15:50)
[2019-01-14] MEDS: Diltiazem IR 30 MG Tab PO SCH ×2 (15:57→21:31)
[2019-01-14] MEDS ORDERED: Metoprolol Tartrate 25 MG Tab PO SCH (17:00)
[2019-01-15] MEDS: Diltiazem IR 30 MG Tab PO SCH (03:49)
[2019-01-15] MEDS: Diltiazem 100 MG in Sodium Chloride 0.9% 100 ML IV SCH (04:13)
[2019-01-15 06:59] LABS: BLOOD UREA NITROGEN,BUN 21 mg/dL (7.0-18.0); CARBON DIOXIDE,CO2 25.4 mmol/L (21.0-32.0); CHLORIDE,CL 105 mmol/L (98-107); GLUCOSE RANDOM 170 mg/dL (74-106); POTASSIUM,K 3.9 mmol/L (3.5-5.1); SODIUM,NA 141 mmol/L (136-148)
[2019-01-15] MEDS: Insulin Aspart 100 Units/ML 3 ML Pen SUBCUT SCH ×3 (07:13→19:17)
[2019-01-15] MEDS: Apixaban 5 MG Tab PO SCH ×2 (08:27→20:50)
[2019-01-15] MEDS ORDERED: Digoxin 500 MCG/2 ML Amp IVPUSH ONE (09:51)
[2019-01-15] MEDS ORDERED: Sodium Chloride 0.9% 500 ML IV ONE (09:59)
--- NOTE | 2019-01-15 13:45 | PN ---
THC Physician - Brief Progress [id number]/07/2019 13:43[facility] Jose Boles, [place] - [place] - LITO SORIADate of Service 01/15/2019 13:43HPI/Events of [place] Patient was seen and examined on cameraPatient case was discussed with the bedside nurse and the treating provider.Patient heart rate is still running between 115 240.Digoxin metoprolol and Cardizem were all tried but the patient failed treatment.Patient will be started on amiodarone drip1 mg for 6 hours then half milligramWhenever the rate is controlled he will be switched to oralWe will also add Cardizem oral 60 mg every 8 hours we will continue to follow on a daily basis.Thank you so much for allowing us to take care of your patientInterventions Major-Arrhythmia - evaluation and managementMin or-Clinical assessment - ordering diagnostic tests
[2019-01-15] MEDS: Diltiazem IR 60 MG Tab PO SCH ×3 (14:05→23:06)
[2019-01-15] MEDS ORDERED: Amiodarone 150 MG in Dextrose 5% in Water 100 ML IV ONE ×2 (14:10)
[2019-01-15] MEDS ORDERED: Digoxin 500 MCG/2 ML Amp IVPUSH SCH (16:00)
--- NOTE | 2019-01-15 16:32 | PCM.PN ---
- General Info Date of Service: 01/15/19 Subjective Update: No complaints at bedside. Patient denies any shortness of breath, chest pain or palpitations. - Patient Data Vitals - Most Recent: Last Vital Signs Temp 97.7 F 01/15/19 08:00 Pulse 134 H 01/15/19 10:17 Resp 29 H 01/15/19 11:00 BP 138/88 01/15/19 11:00 Pulse Ox 91 L 01/15/19 11:00 Weight - Most Recent: 213 lb 3 oz I&O - Last 24 Hours: Intake & Output 01/15/19 01/15/19 01/15/19 06:59 14:59 22:59 Intake Total 1047 Output Total 1400 Balance -353 Lab Results Last 24 Hours: Laboratory Results - last 24 hr 01/14/19 01/14/19 01/15/19 Range/Units 17:02 21:15 06:08 WBC 9.03 (4.0-11.0) K/uL RBC 5.91 H (4.50-5.90) M/uL Hgb 16.6 (13.0-17.0) g/dL Hct 48.2 (38.0-50.0) % MCV 81.6 (80.0-98.0) fL MCH 28.1 (27.0-32.0) pg MCHC 34.4 (31.0-37.0) g/dL RDW Std Deviation 42.3 (28.0-62.0) fl RDW Coeff of [place] 14 (11.0-15.0) % Plt Count 188 (150-400) K/uL MPV 10.70 (7.40-12.00) fL Neut % (Auto) 70.9 (48.0-80.0) % Lymph % (Auto) 17.5 (16.0-40.0) % [place] % (Auto) 7.2 (0.0-15.0) % Eos % (Auto) 3.7 (0.0-7.0) % Baso % (Auto) 0.7 (0.0-1.5) % Neut # (Auto) 6.4 H (1.4-5.7) K/uL Lymph # (Auto) 1.6 (0.6-2.4) K/uL [place] # (Auto) 0.7 (0.0-0.8) K/uL Eos # (Auto) 0.3 (0.0-0.7) K/uL Baso # (Auto) 0.1 (0.0-0.1) K/uL Nucleated RBC % 0.0 /100WBC Nucleated RBCs # 0 K/uL D-Dimer, Quantitative (0.0-0.50) mg/L FEU Sodium (136-148) mmol/L Potassium (3.5-5.1) mmol/L Chloride (98-107) mmol/L Carbon Dioxide (21.0-32.0) mmol/L BUN (7.0-18.0) mg/dL Creatinine (0.8-1.3) mg/dL Est Cr Clr Drug Dosing mL/min Estimated GFR (MDRD) ml/min Glucose (74-106) mg/dL POC Glucose 149 H (60-110) mg/dL Calcium (8.5-10.1) mg/dL Phosphorus (2.6-4.7) mg/dL Magnesium (1.8-2.4) mg/dL Total Bilirubin (0.2-1.0) mg/dL AST (15-37) IU/L ALT (14-63) IU/L Alkaline Phosphatase (46-116) U/L Total Protein (6.4-8.2) g/dL Albumin (3.4-5.0) g/dL Globulin (2.6-4.0) g/dL Albumin/Globulin Ratio (0.9-1.6) Urine Color YELLOW Urine Appearance CLEAR Urine pH 5.5 (5.0-8.0) Ur Specific [place] 1.015 (1.001-1.035) Urine Protein NEGATIVE (NEGATIVE) mg/dL Urine Glucose (UA) >=1000 (NEGATIVE) mg/dL Urine Ketones NEGATIVE (NEGATIVE) mg/dL Urine Occult Blood TRACE-INTACT H (NEGATIVE) Urine Nitrite NEGATIVE (NEGATIVE) Urine Bilirubin NEGATIVE (NEGATIVE) Urine Urobilinogen 0.2 (<2.0) EU/dL Ur Leukocyte Esterase NEGATIVE (NEGATIVE) Urine RBC 0-2 (0-2/HPF) Urine WBC 0-1 (0-5/HPF) Ur Epithelial Cells RARE (NONE-FEW) Urine Bacteria RARE (NEGATIVE) 01/15/19 01/15/19 01/15/19 Range/Units 06:08 06:53 10:07 WBC (4.0-11.0) K/uL RBC (4.50-5.90) M/uL Hgb (13.0-17.0) g/dL Hct (38.0-50.0) % MCV (80.0-98.0) fL MCH (27.0-32.0) pg MCHC (31.0-37.0) g/dL RDW Std Deviation (28.0-62.0) fl RDW Coeff of [place] (11.0-15.0) % Plt Count (150-400) K/uL MPV (7.40-12.00) fL Neut % (Auto) (48.0-80.0) % Lymph % (Auto) (16.0-40.0) % [place] % (Auto) (0.0-15.0) % Eos % (Auto) (0.0-7.0) % Baso % (Auto) (0.0-1.5) % Neut # (Auto) (1.4-5.7) K/uL Lymph # (Auto) (0.6-2.4) K/uL [place] # (Auto) (0.0-0.8) K/uL Eos # (Auto) (0.0-0.7) K/uL Baso # (Auto) (0.0-0.1) K/uL Nucleated RBC % /100WBC Nucleated RBCs # K/uL D-Dimer, Quantitative 0.32 (0.0-0.50) mg/L FEU Sodium 141 (136-148) mmol/L Potassium 3.9 (3.5-5.1) mmol/L Chloride 105 (98-107) mmol/L Carbon Dioxide 25.4 (21.0-32.0) mmol/L BUN 21 H (7.0-18.0) mg/dL Creatinine 1.1 (0.8-1.3) mg/dL Est Cr Clr Drug Dosing 68.74 mL/min Estimated GFR (MDRD) > 60.0 ml/min Glucose 170 H (74-106) mg/dL POC Glucose 153 H (60-110) mg/dL Calcium 8.5 (8.5-10.1) mg/dL Phosphorus 3.1 (2.6-4.7) mg/dL Magnesium 2.0 (1.8-2.4) mg/dL Total Bilirubin 0.4 (0.2-1.0) mg/dL AST 10 L (15-37) IU/L ALT 20 (14-63) IU/L Alkaline Phosphatase 49 (46-116) U/L Total Protein 6.0 L (6.4-8.2) g/dL Albumin 3.4 (3.4-5.0) g/dL Globulin 2.6 (2.6-4.0) g/dL Albumin/Globulin Ratio 1.3 (0.9-1.6) Urine Color Urine Appearance Urine pH (5.0-8.0) Ur Specific [place] (1.001-1.035) Urine Protein (NEGATIVE) mg/dL Urine Glucose (UA) (NEGATIVE) mg/dL Urine Ketones (NEGATIVE) mg/dL Urine Occult Blood (NEGATIVE) Urine Nitrite (NEGATIVE) Urine Bilirubin (NEGATIVE) Urine Urobilinogen (<2.0) EU/dL Ur Leukocyte Esterase (NEGATIVE) Urine RBC (0-2/HPF) Urine WBC (0-5/HPF) Ur Epithelial Cells (NONE-FEW) Urine Bacteria (NEGATIVE) Med Orders - Current: Current Medications Acetaminophen (Tylenol) 650 mg PO Q4H PRN PRN Reason: Pain (Mild 1-3)/fever Apixaban (Eliquis) 5 mg PO BID [facility] Last Admin: 01/15/19 08:27 Dose: 5 mg Diltiazem HCl (Cardizem) 60 mg PO Q8HR [facility] Last Admin: 01/15/19 14:05 Dose: 60 mg Amiodarone HCl/Dextrose (Nexterone In Dextrose 360 Mg/200 Ml) 360 mg in 200 mls @ 33.333 mls/hr IV ASDIRECTED [facility]; Protocol Last Admin: 01/15/19 14:41 Dose: 1 mg/min, 33.333 mls/hr Insulin Aspart (Novolog) 0 unit SUBCUT TIDAC [facility]; Protocol Last Admin: 01/15/19 11:30 Dose: Not Given Ondansetron HCl (Zofran Odt) 4 mg PO Q4H PRN PRN Reason: nausea, able to take PO Ondansetron HCl (Zofran) 4 mg IVPUSH Q4H PRN PRN Reason: Nausea Discontinued Medications Apixaban (Eliquis) 5 mg PO BID [facility] Stop: 01/12/19 15:36 Last Admin: 01/12/19 16:41 Dose: 5 mg Digoxin (Lanoxin) 500 mcg IVPUSH ONETIME ONE Stop: 01/15/19 09:52 Last Admin: 01/15/19 10:17 Dose: 500 mcg Digoxin (Lanoxin) 250 mcg IVPUSH Q6H [facility] Stop: 01/15/19 22:01 Diltiazem HCl (Diltiazem) 20 mg IVPUSH ONETIME ONE Stop: 01/12/19 15:24 Last Admin: 01/12/19 15:31 Dose: 20 mg Diltiazem HCl (Diltiazem) 20 mg IVPUSH ONETIME STA Stop: 01/12/19 16:39 Last Admin: 01/12/19 16:50 Dose: 20 mg Diltiazem HCl (Diltiazem) 20 mg IVPUSH ONETIME ONE Stop: 01/13/19 12:01 Last Admin: 01/13/19 12:53 Dose: Not Given Diltiazem HCl (Cardizem) 30 mg PO Q6H [facility] Last Admin: 01/15/19 03:49 Dose: 30 mg Diltiazem HCl 20 mg/ Sodium (Chloride) 104 mls @ 5 mls/hr IV ASDIRECTED [facility] Diltiazem HCl 125 mg/ Sodium (Chloride) 125 mls @ 5 mls/hr IV NOW [facility]; Protocol Last Titration: 01/14/19 12:32 Dose: 0 mg/hr, 0 mls/hr Sodium Chloride (Normal Saline) 500 mls @ 999 mls/hr IV STAT ONE Stop: 01/13/19 12:29 Last Admin: 01/13/19 12:31 Dose: 999 mls/hr Diltiazem HCl 100 mg/ Sodium (Chloride) 100 mls @ 5 mls/hr IV NOW [facility]; Protocol Last Titration: 01/15/19 08:25 Dose: 15 mg/hr, 15 mls/hr Sodium Chloride (Normal Saline) 500 mls @ 999 mls/hr IV STAT ONE Stop: 01/15/19 10:29 Last Admin: 01/15/19 10:21 Dose: 999 mls/hr Amiodarone HCl 150 mg/ (Dextrose/Water) 103 mls @ 600 mls/hr IV .BOLUS ONE Stop: 01/15/19 14:20 Last Admin: 01/15/19 14:06 Dose: 600 mls/hr Metoprolol Succinate (Toprol Xl) 25 mg PO ONETIME ONE Stop: 01/13/19 22:49 Last Admin: 01/13/19 23:13 Dose: 25 mg Metoprolol Tartrate (Lopressor) 25 mg PO Q12H [facility] Last Admin: 01/12/19 21:17 Dose: 25 mg Metoprolol Tartrate (Lopressor) 50 mg PO Q12H [facility] Last Admin: 01/14/19 05:17 Dose: 50 mg Metoprolol Tartrate (Lopressor) 25 mg PO ONETIME ONE Stop: 01/14/19 09:20 Last Admin: 01/14/19 10:05 Dose: 25 mg Metoprolol Tartrate (Lopressor) 75 mg PO Q12H [facility] Olmesartan/Amlodipin /Hcthiazid [Olmsrtn- Amldpn-Hctz 40-10 1 each PO DAILY [facility] Potassium Chloride (Klor-Con M20) 40 meq PO ONETIME ONE Stop: 01/12/19 17:49 Last Admin: 01/12/19 18:21 Dose: 40 meq - Exam General: Alert, Cooperative, No Acute Distress Lungs: Clear to Auscultation, Normal Respiratory Effort Cardiovascular: Irregular Rhythm GI/Abdominal Exam: Normal Bowel Sounds, Soft, Non-Tender, No Distention Extremities: Normal Inspection, No Pedal Edema Skin: Warm, Dry, Intact - Problem List Review Problem List Initiated/Reviewed/Updated: Yes - Plan Plan:: Assessment: 1. Atrial fibrillation with RVR. 2. Past medical history of DM type 2, HTN and hyperlipidemia. Plan: 1. For atrial fibrillation with RVR, per eICU will start amiodarone drip and PO diltiazem 60 mg q8h. Patient did not respond to weaning off of cardizem drip. Continue Eliquis 5 mg PO BID. 2. For diabetes mellitus type 2, continue SSI with accucheks.
[2019-01-16] MEDS: Diltiazem IR 60 MG Tab PO SCH ×3 (05:54→22:15)
[2019-01-16 06:53] LABS: BLOOD UREA NITROGEN,BUN 16 mg/dL (7.0-18.0); CARBON DIOXIDE,CO2 23.3 mmol/L (21.0-32.0); CHLORIDE,CL 105 mmol/L (98-107); GLUCOSE RANDOM 151 mg/dL (74-106); POTASSIUM,K 3.9 mmol/L (3.5-5.1); SODIUM,NA 140 mmol/L (136-148)
[2019-01-16] MEDS: Insulin Aspart 100 Units/ML 3 ML Pen SUBCUT SCH ×3 (07:41→22:28)
[2019-01-16] MEDS: Apixaban 5 MG Tab PO SCH ×2 (08:31→20:32)
--- NOTE | 2019-01-16 12:04 | PN ---
THC Physician - Brief Progress [id number]/08/2019 12:01[facility] Jose Boles, [place] - MELODYN (ALBERTO) - LITO SORIADate of Service 01/16/2019 12:01HPI/Events of N [place] Patient was seen and examined on cameraPatient case was discussed with the bedside nurse and the treating provider.Patient heart rate is still running between 115 to 125Patient is currently on Cardi zem 60 mg 3 times dailyHe is also on amiodarone drip with some response with improvement since yester day.Plan:Finish 24-hour of 2 amiodarone. Then the patient can be started on oral amiodaroneCT PE pro tocolStarted on metoprolol 25 mg twice dailyIncrease Cardizem oral 90 mg every 8 hoursThank you so martita for allowing us to take care of your patientInterventions Major-Arrhythmia - evaluation and manage mentMinor-Clinical assessment - ordering diagnostic tests
--- NOTE | 2019-01-16 12:20 | PCM.PN ---
- General Info Date of Service: 01/16/19 Admission Dx/Problem (Free Text): Admission Diagnosis/Problem Admission Diagnosis/Problem Hypoxia Subjective Update: No complaints at bedside. Patient denies any shortness of breath, chest pain or palpitations. HR improved to 120s. - Review of Systems General: Denies: Fever, Weakness, Fatigue Pulmonary: Denies: Shortness of Breath Cardiovascular: Denies: Chest Pain, Palpitations, Dyspnea on Exertion Gastrointestinal: Denies: Abdominal Pain, Constipation Genitourinary: Denies: Dysuria, Frequency, Burning Neurological: Denies: Confusion, Dizziness, Headache Psychiatric: Denies: Confusion, Depression, Mood Lability - Patient Data Vitals - Most Recent: Last Vital Signs Temp 97.3 C H 01/16/19 08:00 Pulse 134 H 01/15/19 10:17 Resp 18 01/16/19 12:00 BP 124/84 01/16/19 12:00 Pulse Ox 94 L 01/16/19 12:00 Weight - Most Recent: 96.7 kg I&O - Last 24 Hours: Intake & Output 01/15/19 01/16/19 01/16/19 22:59 06:59 14:59 Intake Total 3678 657 220 Output Total 1120 1200 Balance 2558 -543 220 Lab Results Last 24 Hours: Laboratory Results - last 24 hr 01/15/19 01/16/19 01/16/19 Range/Units 17:30 05:53 05:53 WBC 9.21 (4.0-11.0) K/uL RBC 6.01 H (4.50-5.90) M/uL Hgb 16.9 (13.0-17.0) g/dL Hct 49.2 (38.0-50.0) % MCV 81.9 (80.0-98.0) fL MCH 28.1 (27.0-32.0) pg MCHC 34.3 (31.0-37.0) g/dL RDW Std Deviation 42.0 (28.0-62.0) fl RDW Coeff of [place] 14 (11.0-15.0) % Plt Count 212 (150-400) K/uL MPV 10.60 (7.40-12.00) fL Neut % (Auto) 71.0 (48.0-80.0) % Lymph % (Auto) 15.2 L (16.0-40.0) % [place] % (Auto) 9.8 (0.0-15.0) % Eos % (Auto) 3.7 (0.0-7.0) % Baso % (Auto) 0.3 (0.0-1.5) % Neut # (Auto) 6.5 H (1.4-5.7) K/uL Lymph # (Auto) 1.4 (0.6-2.4) K/uL [place] # (Auto) 0.9 H (0.0-0.8) K/uL Eos # (Auto) 0.3 (0.0-0.7) K/uL Baso # (Auto) 0.0 (0.0-0.1) K/uL Nucleated RBC % 0.0 /100WBC Nucleated RBCs # 0 K/uL Sodium 140 (136-148) mmol/L Potassium 3.9 (3.5-5.1) mmol/L Chloride 105 (98-107) mmol/L Carbon Dioxide 23.3 (21.0-32.0) mmol/L BUN 16 (7.0-18.0) mg/dL Creatinine 1.1 (0.8-1.3) mg/dL Est Cr Clr Drug Dosing 68.74 mL/min Estimated GFR (MDRD) > 60.0 ml/min Glucose 151 H (74-106) mg/dL POC Glucose 130 H (60-110) mg/dL Calcium 8.6 (8.5-10.1) mg/dL Phosphorus (2.6-4.7) mg/dL Magnesium (1.8-2.4) mg/dL Total Bilirubin 0.5 (0.2-1.0) mg/dL AST 12 L (15-37) IU/L ALT 20 (14-63) IU/L Alkaline Phosphatase 54 (46-116) U/L Total Protein 6.5 (6.4-8.2) g/dL Albumin 3.7 (3.4-5.0) g/dL Globulin 2.8 (2.6-4.0) g/dL Albumin/Globulin Ratio 1.3 (0.9-1.6) 01/16/19 01/16/19 01/16/19 Range/Units 05:53 05:59 11:42 WBC (4.0-11.0) K/uL RBC (4.50-5.90) M/uL Hgb (13.0-17.0) g/dL Hct (38.0-50.0) % MCV (80.0-98.0) fL MCH (27.0-32.0) pg MCHC (31.0-37.0) g/dL RDW Std Deviation (28.0-62.0) fl RDW Coeff of [place] (11.0-15.0) % Plt Count (150-400) K/uL MPV (7.40-12.00) fL Neut % (Auto) (48.0-80.0) % Lymph % (Auto) (16.0-40.0) % [place] % (Auto) (0.0-15.0) % Eos % (Auto) (0.0-7.0) % Baso % (Auto) (0.0-1.5) % Neut # (Auto) (1.4-5.7) K/uL Lymph # (Auto) (0.6-2.4) K/uL [place] # (Auto) (0.0-0.8) K/uL Eos # (Auto) (0.0-0.7) K/uL Baso # (Auto) (0.0-0.1) K/uL Nucleated RBC % /100WBC Nucleated RBCs # K/uL Sodium (136-148) mmol/L Potassium (3.5-5.1) mmol/L Chloride (98-107) mmol/L Carbon Dioxide (21.0-32.0) mmol/L BUN (7.0-18.0) mg/dL Creatinine (0.8-1.3) mg/dL Est Cr Clr Drug Dosing mL/min Estimated GFR (MDRD) ml/min Glucose (74-106) mg/dL POC Glucose 138 H 175 H (60-110) mg/dL Calcium (8.5-10.1) mg/dL Phosphorus 2.9 (2.6-4.7) mg/dL Magnesium 1.9 (1.8-2.4) mg/dL Total Bilirubin (0.2-1.0) mg/dL AST (15-37) IU/L ALT (14-63) IU/L Alkaline Phosphatase (46-116) U/L Total Protein (6.4-8.2) g/dL Albumin (3.4-5.0) g/dL Globulin (2.6-4.0) g/dL Albumin/Globulin Ratio (0.9-1.6) Med Orders - Current: Current Medications Acetaminophen (Tylenol) 650 mg PO Q4H PRN PRN Reason: Pain (Mild 1-3)/fever Apixaban (Eliquis) 5 mg PO BID [facility] Last Admin: 01/16/19 08:31 Dose: 5 mg Diltiazem HCl (Cardizem) 90 mg PO Q8HR [facility] Amiodarone HCl/Dextrose (Nexterone In Dextrose 360 Mg/200 Ml) 360 mg in 200 mls @ 33.333 mls/hr IV ASDIRECTED [facility]; Protocol Last Admin: 01/16/19 08:51 Dose: 0.5 mg/min, 16.667 mls/hr Amiodarone HCl 150 mg/ (Dextrose/Water) 103 mls @ 600 mls/hr IV .BOLUS ONE Stop: 01/16/19 12:22 Insulin Aspart (Novolog) 0 unit SUBCUT TIDAC [facility]; Protocol Last Admin: 01/16/19 07:41 Dose: Not Given Metoprolol Tartrate (Lopressor) 25 mg PO Q12H [facility] Ondansetron HCl (Zofran Odt) 4 mg PO Q4H PRN PRN Reason: nausea, able to take PO Ondansetron HCl (Zofran) 4 mg IVPUSH Q4H PRN PRN Reason: Nausea Discontinued Medications Apixaban (Eliquis) 5 mg PO BID [facility] Stop: 01/12/19 15:36 Last Admin: 01/12/19 16:41 Dose: 5 mg Digoxin (Lanoxin) 500 mcg IVPUSH ONETIME ONE Stop: 01/15/19 09:52 Last Admin: 01/15/19 10:17 Dose: 500 mcg Digoxin (Lanoxin) 250 mcg IVPUSH Q6H [facility] Stop: 01/15/19 22:01 Diltiazem HCl (Diltiazem) 20 mg IVPUSH ONETIME ONE Stop: 01/12/19 15:24 Last Admin: 01/12/19 15:31 Dose: 20 mg Diltiazem HCl (Diltiazem) 20 mg IVPUSH ONETIME STA Stop: 01/12/19 16:39 Last Admin: 01/12/19 16:50 Dose: 20 mg Diltiazem HCl (Diltiazem) 20 mg IVPUSH ONETIME ONE Stop: 01/13/19 12:01 Last Admin: 01/13/19 12:53 Dose: Not Given Diltiazem HCl (Cardizem) 30 mg PO Q6H [facility] Last Admin: 01/15/19 03:49 Dose: 30 mg Diltiazem HCl (Cardizem) 60 mg PO Q8HR [facility] Last Admin: 01/16/19 05:54 Dose: 60 mg Diltiazem HCl 20 mg/ Sodium (Chloride) 104 mls @ 5 mls/hr IV ASDIRECTED [facility] Diltiazem HCl 125 mg/ Sodium (Chloride) 125 mls @ 5 mls/hr IV NOW [facility]; Protocol Last Titration: 01/14/19 12:32 Dose: 0 mg/hr, 0 mls/hr Sodium Chloride (Normal Saline) 500 mls @ 999 mls/hr IV STAT ONE Stop: 01/13/19 12:29 Last Admin: 01/13/19 12:31 Dose: 999 mls/hr Diltiazem HCl 100 mg/ Sodium (Chloride) 100 mls @ 5 mls/hr IV NOW [facility]; Protocol Last Titration: 01/15/19 08:25 Dose: 15 mg/hr, 15 mls/hr Sodium Chloride (Normal Saline) 500 mls @ 999 mls/hr IV STAT ONE Stop: 01/15/19 10:29 Last Admin: 01/15/19 10:21 Dose: 999 mls/hr Amiodarone HCl 150 mg/ (Dextrose/Water) 103 mls @ 600 mls/hr IV .BOLUS ONE Stop: 01/15/19 14:20 Last Admin: 01/15/19 14:06 Dose: 600 mls/hr Metoprolol Succinate (Toprol Xl) 25 mg PO ONETIME ONE Stop: 01/13/19 22:49 Last Admin: 01/13/19 23:13 Dose: 25 mg Metoprolol Tartrate (Lopressor) 25 mg PO Q12H [facility] Last Admin: 01/12/19 21:17 Dose: 25 mg Metoprolol Tartrate (Lopressor) 50 mg PO Q12H [facility] Last Admin: 01/14/19 05:17 Dose: 50 mg Metoprolol Tartrate (Lopressor) 25 mg PO ONETIME ONE Stop: 01/14/19 09:20 Last Admin: 01/14/19 10:05 Dose: 25 mg Metoprolol Tartrate (Lopressor) 75 mg PO Q12H [facility] Olmesartan/Amlodipin /Hcthiazid [Olmsrtn- Amldpn-Hctz 40-10 1 each PO DAILY [facility] Potassium Chloride (Klor-Con M20) 40 meq PO ONETIME ONE Stop: 01/12/19 17:49 Last Admin: 01/12/19 18:21 Dose: 40 meq - Exam Quality Assessment: Supplemental Oxygen General: Alert, Oriented, Cooperative Neck: Supple, Trachea Midline Lungs: Clear to Auscultation, Normal Respiratory Effort Cardiovascular: Irregular Rhythm, Tachycardia. No: Regular Rate, Regular Rhythm Extremities: Normal Inspection, Normal Range of Motion Peripheral Pulses: 3+: Posterior Tibial (L), Posterior Tibial (R) - Problem List & Annotations (1) New onset a-fib SNOMED Code(s): 57177509 Code(s): I48.91 - UNSPECIFIED ATRIAL FIBRILLATION Status: Acute Current Visit: Yes (2) Diabetes mellitus SNOMED Code(s): 82465456 Code(s): E11.9 - TYPE 2 DIABETES MELLITUS WITHOUT COMPLICATIONS Status: Acute Current Visit: Yes (3) HTN (hypertension) SNOMED Code(s): 21053076 Code(s): I10 - ESSENTIAL (PRIMARY) HYPERTENSION Status: Acute Current Visit: Yes (4) HLD (hyperlipidemia) SNOMED Code(s): 73481110 Code(s): E78.5 - HYPERLIPIDEMIA, UNSPECIFIED Status: Acute Current Visit : Yes - Problem List Review Problem List Initiated/Reviewed/Updated: Yes - My Orders Last 24 Hours: My Active Orders 01/16/19 11:43 CTA Chest W WO Contrast [Ang Chest] [CT] Routine 01/16/19 12:12 Amiodarone [Cordarone] 150 mg Dextrose 5% in Water 100 ml IV .BOLUS 01/16/19 12:15 Metoprolol Tartrate [Lopressor] 25 mg PO Q12H 01/16/19 14:00 Diltiazem IR [Cardizem] 90 mg PO Q8HR - Plan Plan:: Assessment: 1. Atrial fibrillation with RVR. 2. Past medical history of DM type 2, HTN and hyperlipidemia. Plan: 1. For atrial fibrillation with RVR, cont amiodarone drip, re-bolus with 150 Amiodarone and increase PO diltiazem to 80 mg q8h, add Metoprolol 25 mg BID. Continue Eliquis 5 mg PO BID. 2. For diabetes mellitus type 2, continue SSI with accu-checks, Patient refused SSI so will resume Oral hypoglycemic this evening.
[2019-01-16] MEDS ORDERED: Amiodarone 150 MG in Dextrose 5% in Water 100 ML IV ONE ×2 (12:30)
[2019-01-16] MEDS ORDERED: Metoprolol Tartrate 25 MG Tab ONE (12:51)
[2019-01-16] MEDS: Metoprolol Tartrate 25 MG Tab PO SCH (12:52)
--- NOTE | 2019-01-16 14:23 | CT ---
INDICATION: hypoxia, tachycardia, d-dimer 0.32 Indication: Hypoxia. Tachycardia. Evaluate for pulmonary emboli. Technique: CT pulmonary angiogram. 50 cc of Isovue 370 IV. Coronal/sagittal reconstruction images. Comparison: None. Findings: Contrast bolus is not diagnostic for pulmonary emboli evaluation. The main pulmonary artery measures 108 Hounsfield units. Typically, for a diagnostic quality PE study, main pulmonary artery should exceed 250 Hounsfield units. There is no right heart strain on CT. No thoracic lymphadenopathy by size criteria. The brachiocephalic trunk, left common carotid artery, subclavian artery are widely patent. There are nonenlarged lymph nodes present in the axilla. There is no thoracic lymphadenopathy. No pleural or pericardial effusion. Lung windows demonstrate no endobronchial mass. There is bibasilar dependent atelectasis. There is no honeycomb formation. There is no traction bronchiectasis or pneumothorax. Evaluation of the upper abdomen demonstrates no adrenal mass. The included segments of the spleen and pancreas are normal. There is diffuse hepatic steatosis with hepatomegaly. Non cirrhotic liver morphology. The bone windows demonstrate no suspicious lytic or blastic bone lesions. Spurring is present in the endplates of the thoracic spine. Impression: 1. Contrast bolus is not diagnostic for pulmonary emboli evaluation. 2. No thoracic lymphadenopathy or acute airspace disease. 3. Case was reviewed with the registered vascular technologist (rvt), 01/16/2019, 1415 hours. Examination will be repeated. Dictated by Buck Dhaliwal MD @ 01/16/2019 2:20:50 PM Please note that all CT scans at this facility use dose modulation, iterative reconstruction, and/or weight-based dosing when appropriate to reduce radiation dose to as low as reasonably achievable. Dictated by: Buck Dhaliwal MD @ 01/16/2019 14:20:59 (Electronically Signed)
[2019-01-16] MEDS ORDERED: Iopamidol 755 Mg/ML 100 ML Bottle IVPUSH STA (17:46)
[2019-01-16] MEDS ORDERED: Iopamidol 755 MG/ML 500 ML Multipack Bottle IVPUSH STA (17:47)
[2019-01-17] MEDS: Metoprolol Tartrate 25 MG Tab PO SCH ×2 (00:08→11:18)
[2019-01-17] MEDS: Diltiazem IR 60 MG Tab PO SCH (06:06)
[2019-01-17 06:19] LABS: BLOOD UREA NITROGEN,BUN 14 mg/dL (7.0-18.0); CARBON DIOXIDE,CO2 27.2 mmol/L (21.0-32.0); CHLORIDE,CL 106 mmol/L (98-107); GLUCOSE RANDOM 139 mg/dL (74-106); POTASSIUM,K 3.9 mmol/L (3.5-5.1); SODIUM,NA 141 mmol/L (136-148)
[2019-01-17] MEDS: Insulin Aspart 100 Units/ML 3 ML Pen SUBCUT SCH ×3 (06:31→16:58)
[2019-01-17] MEDS ORDERED: Iopamidol 755 Mg/ML 100 ML Bottle IVPUSH STA (07:55)
[2019-01-17] MEDS: Apixaban 5 MG Tab PO SCH ×2 (08:15→20:39)
[2019-01-17] MEDS ORDERED: Non-Formulary Medication 1 Each (Sitagliptin Phos/Metformin Hcl [Janumet 50-1,000 Mg] 1 TA PO SCH (09:48)
--- NOTE | 2019-01-17 10:53 | PN ---
THC Physician - Brief Progress [id number]/09/2019 10:47[facility] Jose Boles, [place] - MWN (ANATOLYN) - MWN LITO VINCENTDate of Service 01/17/2019 10:47HPI/Events of N [place]te eICU Progress [id number] admitted for afib RVR. History obtained primarily from review of EMR.Camera exam: Laying in bed. Vitals monitor reviewed, HR 80s Vitals: reviewedLabs: reviewedRadiology: review ed, CT angio non-diagnostic for pulmonary embolismMeds: reviewedeICU Impression and Recommendations:A trial Fibrillation with Rapid Ventricular response, now rate controlled following amiodarone loadFoll owing amiodarone load suggest either initiation of oral amiodarone or increase in metoprolol dosage - target HR of <110bpm. With concomitant beta jarett and calcium channel jarett administration, renetta mmend EKG to assess for presence of first degree AV blockTarget Mg > 2, K>4Agree with ApixabanDiabete s MellitusHyperglycemiaPRN insulin per institutional sliding scale protocol with scheduled glucose ch ecksRecommend targeted glucose goal of <180DVT and GI prophylaxis as appropriate.We are available to assist in further clarification, or implementation of any of the aboverecommendations if desired by christopehr barrett.Thank you for allowing us to participate in the care of this patient.The above note tr anscribed via dictation software. Please excuse any errors.Interventions Major-Arrhythmia - evaluatio n and management
[2019-01-17] MEDS: Diltiazem 120 MG Cap.CD PO SCH ×2 (12:46→20:39)
--- NOTE | 2019-01-17 13:24 | PCM.PN ---
- General Info Date of Service: 01/17/19 Subjective Update: No complaints at bedside this morning. Denies shortness of breath, dizziness, chest pain or palpitations. - Patient Data Vitals - Most Recent: Last Vital Signs Temp 97.4 F 01/17/19 12:00 Pulse 90 01/17/19 12:46 Resp 19 01/17/19 13:00 BP 112/73 01/17/19 13:00 Pulse Ox 93 L 01/17/19 13:00 Weight - Most Recent: 275 lb 9.245 oz I&O - Last 24 Hours: Intake & Output 01/16/19 01/17/19 01/17/19 22:59 06:59 14:59 Intake Total 2491 150 Output Total 1130 Balance 1361 150 Lab Results Last 24 Hours: Laboratory Results - last 24 hr 01/16/19 01/17/19 01/17/19 Range/Units 17:22 05:35 05:35 WBC 9.02 (4.0-11.0) K/uL RBC 5.66 (4.50-5.90) M/uL Hgb 15.9 (13.0-17.0) g/dL Hct 46.0 (38.0-50.0) % MCV 81.3 (80.0-98.0) fL MCH 28.1 (27.0-32.0) pg MCHC 34.6 (31.0-37.0) g/dL RDW Std Deviation 42.2 (28.0-62.0) fl RDW Coeff of [place] 14 (11.0-15.0) % Plt Count 193 (150-400) K/uL MPV 10.70 (7.40-12.00) fL Neut % (Auto) 68.6 (48.0-80.0) % Lymph % (Auto) 16.1 (16.0-40.0) % [place] % (Auto) 10.8 (0.0-15.0) % Eos % (Auto) 4.2 (0.0-7.0) % Baso % (Auto) 0.3 (0.0-1.5) % Neut # (Auto) 6.2 H (1.4-5.7) K/uL Lymph # (Auto) 1.5 (0.6-2.4) K/uL [place] # (Auto) 1.0 H (0.0-0.8) K/uL Eos # (Auto) 0.4 (0.0-0.7) K/uL Baso # (Auto) 0.0 (0.0-0.1) K/uL Nucleated RBC % 0.0 /100WBC Nucleated RBCs # 0 K/uL Sodium 141 (136-148) mmol/L Potassium 3.9 (3.5-5.1) mmol/L Chloride 106 (98-107) mmol/L Carbon Dioxide 27.2 (21.0-32.0) mmol/L BUN 14 (7.0-18.0) mg/dL Creatinine 1.1 (0.8-1.3) mg/dL Est Cr Clr Drug Dosing 68.74 mL/min Estimated GFR (MDRD) > 60.0 ml/min Glucose 139 H (74-106) mg/dL POC Glucose 179 H (60-110) mg/dL Calcium 8.6 (8.5-10.1) mg/dL Phosphorus 3.3 (2.6-4.7) mg/dL Magnesium 2.0 (1.8-2.4) mg/dL 01/17/19 Range/Units 06:10 WBC (4.0-11.0) K/uL RBC (4.50-5.90) M/uL Hgb (13.0-17.0) g/dL Hct (38.0-50.0) % MCV (80.0-98.0) fL MCH (27.0-32.0) pg MCHC (31.0-37.0) g/dL RDW Std Deviation (28.0-62.0) fl RDW Coeff of [place] (11.0-15.0) % Plt Count (150-400) K/uL MPV (7.40-12.00) fL Neut % (Auto) (48.0-80.0) % Lymph % (Auto) (16.0-40.0) % [place] % (Auto) (0.0-15.0) % Eos % (Auto) (0.0-7.0) % Baso % (Auto) (0.0-1.5) % Neut # (Auto) (1.4-5.7) K/uL Lymph # (Auto) (0.6-2.4) K/uL [place] # (Auto) (0.0-0.8) K/uL Eos # (Auto) (0.0-0.7) K/uL Baso # (Auto) (0.0-0.1) K/uL Nucleated RBC % /100WBC Nucleated RBCs # K/uL Sodium (136-148) mmol/L Potassium (3.5-5.1) mmol/L Chloride (98-107) mmol/L Carbon Dioxide (21.0-32.0) mmol/L BUN (7.0-18.0) mg/dL Creatinine (0.8-1.3) mg/dL Est Cr Clr Drug Dosing mL/min Estimated GFR (MDRD) ml/min Glucose (74-106) mg/dL POC Glucose 148 H (60-110) mg/dL Calcium (8.5-10.1) mg/dL Phosphorus (2.6-4.7) mg/dL Magnesium (1.8-2.4) mg/dL Med Orders - Current: Current Medications Acetaminophen (Tylenol) 650 mg PO Q4H PRN PRN Reason: Pain (Mild 1-3)/fever Last Admin: 01/17/19 04:28 Dose: 650 mg Apixaban (Eliquis) 5 mg PO BID [facility] Last Admin: 01/17/19 08:15 Dose: 5 mg Diltiazem HCl (Cardizem Cd) 240 mg PO BID [facility] Last Admin: 01/17/19 12:46 Dose: 240 mg Amiodarone HCl/Dextrose (Nexterone In Dextrose 360 Mg/200 Ml) 360 mg in 200 mls @ 33.333 mls/hr IV ASDIRECTED [facility]; Protocol Last Admin: 01/17/19 08:36 Dose: 0.5 mg/min, 16.667 mls/hr Insulin Aspart (Novolog) 0 unit SUBCUT TIDAC [facility]; Protocol Last Admin: 01/17/19 11:44 Dose: Not Given Metformin [facility]op[facility]ol Tartrate (Lopressor) 25 mg PO Q12H [facility] Last Admin: 01/17/19 11:18 Dose: 25 mg Ondansetron HCl (Zofran Odt) 4 mg PO Q4H PRN PRN Reason: nausea, able to take PO Ondansetron HCl (Zofran) 4 mg IVPUSH Q4H PRN PRN Reason: Nausea Sitagliptin Phosphate (Januvia) 50 mg PO BIDMEALS [facility] Discontinued Medications Apixaban (Eliquis) 5 mg PO BID [facility] Stop: 01/12/19 15:36 Last Admin: 01/12/19 16:41 Dose: 5 mg Digoxin (Lanoxin) 500 mcg IVPUSH ONETIME ONE Stop: 01/15/19 09:52 Last Admin: 01/15/19 10:17 Dose: 500 mcg Digoxin (Lanoxin) 250 mcg IVPUSH Q6H [facility] Stop: 01/15/19 22:01 Diltiazem HCl (Diltiazem) 20 mg IVPUSH ONETIME ONE Stop: 01/12/19 15:24 Last Admin: 01/12/19 15:31 Dose: 20 mg Diltiazem HCl (Diltiazem) 20 mg IVPUSH ONETIME STA Stop: 01/12/19 16:39 Last Admin: 01/12/19 16:50 Dose: 20 mg Diltiazem HCl (Diltiazem) 20 mg IVPUSH ONETIME ONE Stop: 01/13/19 12:01 Last Admin: 01/13/19 12:53 Dose: Not Given Diltiazem HCl (Cardizem) 30 mg PO Q6H [facility] Last Admin: 01/15/19 03:49 Dose: 30 mg Diltiazem HCl (Cardizem) 60 mg PO Q8HR [facility] Last Admin: 01/16/19 05:54 Dose: 60 mg Diltiazem HCl (Cardizem) 90 mg PO Q8HR [facility] Last Admin: 01/17/19 06:06 Dose: 90 mg Diltiazem HCl 20 mg/ Sodium (Chloride) 104 mls @ 5 mls/hr IV ASDIRECTED [facility] Diltiazem HCl 125 mg/ Sodium (Chloride) 125 mls @ 5 mls/hr IV NOW [facility]; Protocol Last Titration: 01/14/19 12:32 Dose: 0 mg/hr, 0 mls/hr Sodium Chloride (Normal Saline) 500 mls @ 999 mls/hr IV STAT ONE Stop: 01/13/19 12:29 Last Admin: 01/13/19 12:31 Dose: 999 mls/hr Diltiazem HCl 100 mg/ Sodium (Chloride) 100 mls @ 5 mls/hr IV NOW [facility]; Protocol Last Titration: 01/15/19 08:25 Dose: 15 mg/hr, 15 mls/hr Sodium Chloride (Normal Saline) 500 mls @ 999 mls/hr IV STAT ONE Stop: 01/15/19 10:29 Last Admin: 01/15/19 10:21 Dose: 999 mls/hr Amiodarone HCl 150 mg/ (Dextrose/Water) 103 mls @ 600 mls/hr IV .BOLUS ONE Stop: 01/15/19 14:20 Last Admin: 01/15/19 14:06 Dose: 600 mls/hr Amiodarone HCl 150 mg/ (Dextrose/Water) 103 mls @ 600 mls/hr IV .BOLUS ONE Stop: 01/16/19 12:40 Last Admin: 01/16/19 12:34 Dose: 600 mls/hr Iopamidol (Isovue Multipack-370 (76%)) 50 ml IVPUSH ONETIME STA Stop: 01/16/19 17:48 Last Admin: 01/16/19 22:28 Dose: Not Given Iopamidol (Isovue-370 (76%)) 100 ml IVPUSH ONETIME STA Stop: 01/17/19 07:56 Last Admin: 01/17/19 07:56 Dose: 100 ml Metoprolol Succinate (Toprol Xl) 25 mg PO ONETIME ONE Stop: 01/13/19 22:49 Last Admin: 01/13/19 23:13 Dose: 25 mg Metoprolol Tartrate (Lopressor) 25 mg PO Q12H [facility] Last Admin: 01/12/19 21:17 Dose: 25 mg Metoprolol Tartrate (Lopressor) 50 mg PO Q12H [facility] Last Admin: 01/14/19 05:17 Dose: 50 mg Metoprolol Tartrate (Lopressor) 25 mg PO ONETIME ONE Stop: 01/14/19 09:20 Last Admin: 01/14/19 10:05 Dose: 25 mg Metoprolol Tartrate (Lopressor) 75 mg PO Q12H [facility] Metoprolol Tartrate (Lopressor) Confirm Administered Dose 25 mg .ROUTE .STK-MED ONE Stop: 01/16/19 12:52 Last Admin: 01/16/19 22:28 Dose: Not Given Non-Formulary Medication (Sitagliptin Phos/Metformin Hcl [Janumet 50-1,000 Mg]) 1 tab PO BIDMEALS [facility] Last Admin: 01/17/19 11:12 Dose: Not Given Olmesartan/Amlodipin /Hcthiazid [Olmsrtn- Amldpn-Hctz 40-10 1 each PO DAILY [facility] Potassium Chloride (Klor-Con M20) 40 meq PO ONETIME ONE Stop: 01/12/19 17:49 Last Admin: 01/12/19 18:21 Dose: 40 meq - Exam General: Alert, Oriented, Cooperative, No Acute Distress Lungs: Clear to Auscultation, Normal Respiratory Effort Cardiovascular: Irregular Rhythm GI/Abdominal Exam: Normal Bowel Sounds, Soft, Non-Tender, No Distention Extremities: Normal Inspection, No Pedal Edema Skin: Warm, Dry, Intact - Problem List Review Problem List Initiated/Reviewed/Updated: Yes - My Orders Last 24 Hours: My Active Orders 01/17/19 11:40 Diltiazem [Cardizem CD] 240 mg PO BID 01/17/19 17:00 SitaGLIPtin [Januvia] 50 mg PO BIDMEALS metFORMIN [Glucophage] 1,000 mg PO BIDMEALS 01/18/19 05:11 CBC WITH AUTO DIFF [HEME] AM COMPREHENSIVE METABOLIC PN,CMP [CHEM] AM MAGNESIUM [CHEM] AM PHOSPHORUS [CHEM] AM - Plan Plan:: Assessment: 1. Atrial fibrillation with RVR. 2. Past medical history of DM type 2, HTN and hyperlipidemia. Plan: 1. For atrial fibrillation with RVR, will continue amiodarone drip and metoprolol 25 mg BID. Cardiology was contacted and recommended starting PO diltiazem long acting 240 mg BID. Per telemetry, HR currently 60-70's but did dip down briefly to 40's overnight. Continue Eliquis [address] angio negative. 2. For diabetes mellitus type 2, will resume oral hypoglycemic today.
--- NOTE | 2019-01-17 15:41 | ECHO ---
The echocardiogram report can be seen in this patient's EMR (Electronic Medical Record) in the REPORTS section. The echocardiogram report has also been scanned into PACS and can be seen there as well. KIP
[2019-01-17] MEDS: metFORMIN 500 MG Tab PO SCH (16:58)
[2019-01-18] MEDS: Metoprolol Tartrate 25 MG Tab PO SCH ×2 (00:21→12:05)
--- NOTE | 2019-01-18 05:02 | PN ---
THC Physician - Brief Progress [id number]/10/2019 03:43[facility] Jose Boles, [place] - [place] (ALEBRTO) - LITO SORIADate of Service 01/18/2019 03:43HPI/Events of N ote HR < 60, went down to 50. since mid night.on Cardizem CD, Lopressor. on amiodarone at 0.5 drip al so.KLabs seen.Plan:- DC Amiodarone for now.follow labs in AM.Interventions Intermediate-Arrhythmia - evaluation and management
[2019-01-18 05:41] LABS: BLOOD UREA NITROGEN,BUN 14 mg/dL (7.0-18.0); CARBON DIOXIDE,CO2 25.5 mmol/L (21.0-32.0); CHLORIDE,CL 107 mmol/L (98-107); GLUCOSE RANDOM 153 mg/dL (74-106); POTASSIUM,K 3.6 mmol/L (3.5-5.1); SODIUM,NA 141 mmol/L (136-148)
[2019-01-18] MEDS: Insulin Aspart 100 Units/ML 3 ML Pen SUBCUT SCH ×3 (07:26→16:49)
[2019-01-18] MEDS: metFORMIN 500 MG Tab PO SCH (07:31)
[2019-01-18] MEDS ORDERED: Potassium Chloride 20 MEQ Tab.ER PO ONE (09:16)
[2019-01-18] MEDS ORDERED: Magnesium Oxide 400 MG Tab PO ONE (09:16)
[2019-01-18] MEDS: Apixaban 5 MG Tab PO SCH ×2 (09:23→21:03)
[2019-01-18] MEDS: Diltiazem 120 MG Cap.CD PO SCH ×2 (09:23→21:03)
[2019-01-18] MEDS: Amiodarone 200 MG Tab PO SCH (09:31)
--- NOTE | 2019-01-18 12:00 | PCM.PN ---
- General Info Date of Service: 01/18/19 Subjective Update: No complaints at bedside this morning. Denies SOB, chest pain or palpitations. Has been off of amiodarone drip this morning and per telemetry 50-80's a-fib/a- flutter overnight. - Patient Data Vitals - Most Recent: Last Vital Signs Temp 97.8 F 01/18/19 08:00 Pulse 92 01/18/19 09:23 Resp 14 01/18/19 11:00 BP 137/72 01/18/19 11:00 Pulse Ox 89 L 01/18/19 11:00 Weight - Most Recent: 274 lb 11.135 oz I&O - Last 24 Hours: Intake & Output 01/17/19 01/18/19 01/18/19 22:59 06:59 14:59 Intake Total 2500 1445 480 Output Total 2019 1450 500 Balance 480 -5 -20 Lab Results Last 24 Hours: Laboratory Results - last 24 hr 01/17/19 01/17/19 01/18/19 Range/Units 11:24 16:53 05:12 WBC 9.59 (4.0-11.0) K/uL RBC 5.65 (4.50-5.90) M/uL Hgb 15.8 (13.0-17.0) g/dL Hct 46.2 (38.0-50.0) % MCV 81.8 (80.0-98.0) fL MCH 28.0 (27.0-32.0) pg MCHC 34.2 (31.0-37.0) g/dL RDW Std Deviation 42.3 (28.0-62.0) fl RDW Coeff of [place] 14 (11.0-15.0) % Plt Count 192 (150-400) K/uL MPV 10.50 (7.40-12.00) fL Neut % (Auto) 69.9 (48.0-80.0) % Lymph % (Auto) 14.5 L (16.0-40.0) % [place] % (Auto) 10.6 (0.0-15.0) % Eos % (Auto) 4.6 (0.0-7.0) % Baso % (Auto) 0.4 (0.0-1.5) % Neut # (Auto) 6.7 H (1.4-5.7) K/uL Lymph # (Auto) 1.4 (0.6-2.4) K/uL [place] # (Auto) 1.0 H (0.0-0.8) K/uL Eos # (Auto) 0.4 (0.0-0.7) K/uL Baso # (Auto) 0.0 (0.0-0.1) K/uL Nucleated RBC % 0.0 /100WBC Nucleated RBCs # 0 K/uL Sodium (136-148) mmol/L Potassium (3.5-5.1) mmol/L Chloride (98-107) mmol/L Carbon Dioxide (21.0-32.0) mmol/L BUN (7.0-18.0) mg/dL Creatinine (0.8-1.3) mg/dL Est Cr Clr Drug Dosing mL/min Estimated GFR (MDRD) ml/min Glucose (74-106) mg/dL POC Glucose 159 H 156 H (60-110) mg/dL Calcium (8.5-10.1) mg/dL Phosphorus (2.6-4.7) mg/dL Magnesium (1.8-2.4) mg/dL Total Bilirubin (0.2-1.0) mg/dL AST (15-37) IU/L ALT (14-63) IU/L Alkaline Phosphatase (46-116) U/L Total Protein (6.4-8.2) g/dL Albumin (3.4-5.0) g/dL Globulin (2.6-4.0) g/dL Albumin/Globulin Ratio (0.9-1.6) 01/18/19 01/18/19 01/18/19 Range/Units 05:12 06:10 11:08 WBC (4.0-11.0) K/uL RBC (4.50-5.90) M/uL Hgb (13.0-17.0) g/dL Hct (38.0-50.0) % MCV (80.0-98.0) fL MCH (27.0-32.0) pg MCHC (31.0-37.0) g/dL RDW Std Deviation (28.0-62.0) fl RDW Coeff of [place] (11.0-15.0) % Plt Count (150-400) K/uL MPV (7.40-12.00) fL Neut % (Auto) (48.0-80.0) % Lymph % (Auto) (16.0-40.0) % [place] % (Auto) (0.0-15.0) % Eos % (Auto) (0.0-7.0) % Baso % (Auto) (0.0-1.5) % Neut # (Auto) (1.4-5.7) K/uL Lymph # (Auto) (0.6-2.4) K/uL [place] # (Auto) (0.0-0.8) K/uL Eos # (Auto) (0.0-0.7) K/uL Baso # (Auto) (0.0-0.1) K/uL Nucleated RBC % /100WBC Nucleated RBCs # K/uL Sodium 141 (136-148) mmol/L Potassium 3.6 (3.5-5.1) mmol/L Chloride 107 (98-107) mmol/L Carbon Dioxide 25.5 (21.0-32.0) mmol/L BUN 14 (7.0-18.0) mg/dL Creatinine 1.2 (0.8-1.3) mg/dL Est Cr Clr Drug Dosing 63.01 mL/min Estimated GFR (MDRD) > 60.0 ml/min Glucose 153 H (74-106) mg/dL POC Glucose 146 H 171 H (60-110) mg/dL Calcium 8.4 L (8.5-10.1) mg/dL Phosphorus 3.3 (2.6-4.7) mg/dL Magnesium 1.8 (1.8-2.4) mg/dL Total Bilirubin 0.3 (0.2-1.0) mg/dL AST 13 L (15-37) IU/L ALT 22 (14-63) IU/L Alkaline Phosphatase 50 (46-116) U/L Total Protein 6.1 L (6.4-8.2) g/dL Albumin 3.3 L (3.4-5.0) g/dL Globulin 2.8 (2.6-4.0) g/dL Albumin/Globulin Ratio 1.2 (0.9-1.6) Med Orders - Current: Current Medications Acetaminophen (Tylenol) 650 mg PO Q4H PRN PRN Reason: Pain (Mild 1-3)/fever Last Admin: 01/17/19 04:28 Dose: 650 mg Amiodarone HCl (Cordarone) 200 mg PO DAILY [facility] Last Admin: 01/18/19 09:31 Dose: 200 mg Apixaban (Eliquis) 5 mg PO BID [facility] Last Admin: 01/18/19 09:23 Dose: 5 mg Diltiazem HCl (Cardizem Cd) 240 mg PO BID [facility] Last Admin: 01/18/19 09:23 Dose: 240 mg Amiodarone HCl/Dextrose (Nexterone In Dextrose 360 Mg/200 Ml) 360 mg in 200 mls @ 33.333 mls/hr IV ASDIRECTED [facility]; Protocol Last Infusion: 01/18/19 03:45 Dose: 0 mg/min, 0 mls/hr Insulin Aspart (Novolog) 0 unit SUBCUT TIDAC [facility]; Protocol Last Admin: 01/18/19 11:12 Dose: Not Given Metformin HCl (Glucophage) 1,000 mg PO BIDMEALS [facility] Last Admin: 01/18/19 07:31 Dose: Not Given Metoprolol Tartrate (Lopressor) 25 mg PO Q12H [facility] Last Admin: 01/18/19 00:21 Dose: 25 mg Ondansetron HCl (Zofran Odt) 4 mg PO Q4H PRN PRN Reason: nausea, able to take PO Ondansetron HCl (Zofran) 4 mg IVPUSH Q4H PRN PRN Reason: Nausea Sitagliptin Phosphate (Januvia) 50 mg PO BIDMEALS [facility] Last Admin: 01/18/19 07:32 Dose: Not Given Discontinued Medications Apixaban (Eliquis) 5 mg PO BID [facility] Stop: 01/12/19 15:36 Last Admin: 01/12/19 16:41 Dose: 5 mg Digoxin (Lanoxin) 500 mcg IVPUSH ONETIME ONE Stop: 01/15/19 09:52 Last Admin: 01/15/19 10:17 Dose: 500 mcg Digoxin (Lanoxin) 250 mcg IVPUSH Q6H [facility] Stop: 01/15/19 22:01 Diltiazem HCl (Diltiazem) 20 mg IVPUSH ONETIME ONE Stop: 01/12/19 15:24 Last Admin: 01/12/19 15:31 Dose: 20 mg Diltiazem HCl (Diltiazem) 20 mg IVPUSH ONETIME STA Stop: 01/12/19 16:39 Last Admin: 01/12/19 16:50 Dose: 20 mg Diltiazem HCl (Diltiazem) 20 mg IVPUSH ONETIME ONE Stop: 01/13/19 12:01 Last Admin: 01/13/19 12:53 Dose: Not Given Diltiazem HCl (Cardizem) 30 mg PO Q6H [facility] Last Admin: 01/15/19 03:49 Dose: 30 mg Diltiazem HCl (Cardizem) 60 mg PO Q8HR [facility] Last Admin: 01/16/19 05:54 Dose: 60 mg Diltiazem HCl (Cardizem) 90 mg PO Q8HR [facility] Last Admin: 01/17/19 06:06 Dose: 90 mg Diltiazem HCl 20 mg/ Sodium (Chloride) 104 mls @ 5 mls/hr IV ASDIRECTED [facility] Diltiazem HCl 125 mg/ Sodium (Chloride) 125 mls @ 5 mls/hr IV NOW [facility]; Protocol Last Titration: 01/14/19 12:32 Dose: 0 mg/hr, 0 mls/hr Sodium Chloride (Normal Saline) 500 mls @ 999 mls/hr IV STAT ONE Stop: 01/13/19 12:29 Last Admin: 01/13/19 12:31 Dose: 999 mls/hr Diltiazem HCl 100 mg/ Sodium (Chloride) 100 mls @ 5 mls/hr IV NOW [facility]; Protocol Last Titration: 01/15/19 08:25 Dose: 15 mg/hr, 15 mls/hr Sodium Chloride (Normal Saline) 500 mls @ 999 mls/hr IV STAT ONE Stop: 01/15/19 10:29 Last Admin: 01/15/19 10:21 Dose: 999 mls/hr Amiodarone HCl 150 mg/ (Dextrose/Water) 103 mls @ 600 mls/hr IV .BOLUS ONE Stop: 01/15/19 14:20 Last Admin: 01/15/19 14:06 Dose: 600 mls/hr Amiodarone HCl 150 mg/ (Dextrose/Water) 103 mls @ 600 mls/hr IV .BOLUS ONE Stop: 01/16/19 12:40 Last Admin: 01/16/19 12:34 Dose: 600 mls/hr Iopamidol (Isovue Multipack-370 (76%)) 50 ml IVPUSH ONETIME STA Stop: 01/16/19 17:48 Last Admin: 01/16/19 22:28 Dose: Not Given Iopamidol (Isovue-370 (76%)) 100 ml IVPUSH ONETIME STA Stop: 01/17/19 07:56 Last Admin: 01/17/19 07:56 Dose: 100 ml Magnesium Oxide (Magnesium Oxide) 800 mg PO ONETIME ONE Stop: 01/18/19 09:17 Last Admin: 01/18/19 09:31 Dose: 800 mg Metoprolol Succinate (Toprol Xl) 25 mg PO ONETIME ONE Stop: 01/13/19 22:49 Last Admin: 01/13/19 23:13 Dose: 25 mg Metoprolol Tartrate (Lopressor) 25 mg PO Q12H [facility] Last Admin: 01/12/19 21:17 Dose: 25 mg Metoprolol Tartrate (Lopressor) 50 mg PO Q12H [facility] Last Admin: 01/14/19 05:17 Dose: 50 mg Metoprolol Tartrate (Lopressor) 25 mg PO ONETIME ONE Stop: 01/14/19 09:20 Last Admin: 01/14/19 10:05 Dose: 25 mg Metoprolol Tartrate (Lopressor) 75 mg PO Q12H [facility] Metoprolol Tartrate (Lopressor) Confirm Administered Dose 25 mg .ROUTE .STK-MED ONE Stop: 01/16/19 12:52 Last Admin: 01/16/19 22:28 Dose: Not Given Non-Formulary Medication (Sitagliptin Phos/Metformin Hcl [Janumet 50-1,000 Mg]) 1 tab PO BIDMEALS [facility] Last Admin: 01/17/19 11:12 Dose: Not Given Olmesartan/Amlodipin /Hcthiazid [Olmsrtn- Amldpn-Hctz 40-10 1 each PO DAILY [facility] Potassium Chloride (Klor-Con M20) 40 meq PO ONETIME ONE Stop: 01/12/19 17:49 Last Admin: 01/12/19 18:21 Dose: 40 meq Potassium Chloride (Klor-Con M20) 40 meq PO ONETIME ONE Stop: 01/18/19 09:17 Last Admin: 01/18/19 09:31 Dose: 40 meq - Exam General: Alert, Oriented, Cooperative, No Acute Distress Lungs: Clear to Auscultation, Normal Respiratory Effort Cardiovascular: Regular Rate, Regular Rhythm GI/Abdominal Exam: Normal Bowel Sounds, Soft, Non-Tender, No Distention Extremities: Normal Inspection, No Pedal Edema Skin: Warm, Dry, Intact Sepsis Event Note - Evaluation Sepsis Screening Result: No Definite Risk - Focused Exam Vital Signs: Vital Signs Temp Pulse Resp BP BP Pulse Ox Pulse Ox 01/18/19 11:00 14 137/72 89 L 01/18/19 10:04 17 131/80 90 L 01/18/19 09:23 92 119/77 01/18/19 09:00 18 119/77 94 L 01/18/19 08:00 97.8 F 18 131/85 87 L 01/18/19 07:00 18 116/74 93 L 01/18/19 06:00 15 111/74 93 L 01/18/19 05:00 17 112/70 93 L 93 L 01/18/19 04:00 97.3 F 19 108/68 94 L 01/18/19 03:00 17 115/72 92 L 01/18/19 02:00 17 109/57 L 92 L 01/18/19 01:00 19 115/59 L 91 L 01/18/19 00:21 94 121/81 01/18/19 00:00 97.7 F 16 121/81 94 L Date Exam was Performed: 01/18/19 Time Exam was Performed: 12:00 - Problem List Review Problem List Initiated/Reviewed/Updated: Yes - My Orders Last 24 Hours: My Active Orders 01/17/19 11:40 Diltiazem [Cardizem CD] 240 mg PO BID 01/17/19 17:00 SitaGLIPtin [Januvia] 50 mg PO BIDMEALS metFORMIN [Glucophage] 1,000 mg PO BIDMEALS - Plan Plan:: Assessment: 1. Atrial fibrillation with RVR. 2. Past medical history of DM type 2, HTN and hyperlipidemia. Plan: 1. For atrial fibrillation with RVR, amiodarone drip stopped this morning. Per telemetry, rate was 50-80's overnight and 80-100 this morning. Will start amiodarone 200 mg qd, metoprolol 25 mg BID and diltiazem CD 240 mg BID. Will continue to monitor. Will contact cardiology for further recommendations. Continue Eliquis 5 mg PO BID. 2. For diabetes mellitus type 2, continue home medications.
--- NOTE | 2019-01-18 14:25 | PN ---
THC Physician - Brief Progress [id number]/10/2019 14:07[facility] Jose Boles, [place] - [place] (ALBERTO) - LITO SORIADate of Service 01/18/2019 14:07HPI/Events of N ote eICU Progress [id number] admitted for afib RVR. History obtained primarily from review of EMR.Camera exam: Laying in bed. Vitals monitor reviewed, HR 100sVitals: reviewedLabs: reviewedRadiology: review ed, CT angio non-diagnostic for pulmonary embolismMeds: reviewedeICU Impression and Recommendations:A trial Fibrillation with Rapid Ventricular response, now rate controlled following amiodarone loadAgre e with initiation of oral amiodarone - target HR of <110bpm. Target Mg > 2, K>4Agree with ApixabanDia betes MellitusHyperglycemiaPRN insulin per institutional sliding scale protocol with scheduled glucos e checksRecommend targeted glucose goal of <180DVT and GI prophylaxis as appropriate.We are available to assist in further clarification, or implementation of any of the aboverecommendations if desired by primary service.Thank you for allowing us to participate in the care of this patient.The above not e transcribed via dictation software. Please excuse any errors.Interventions Major-Arrhythmia - evalu ation and management
[2019-01-18] MEDS: JANUMET PO SCH (17:04)
[2019-01-19] MEDS: Metoprolol Tartrate 25 MG Tab PO SCH (00:05)
[2019-01-19 06:30] LABS: CARBON DIOXIDE,CO2 28.9 mmol/L (21.0-32.0); POTASSIUM,K 4.6 mmol/L (3.5-5.1)
[2019-01-19] MEDS: Insulin Aspart 100 Units/ML 3 ML Pen SUBCUT SCH (06:44)
[2019-01-19] MEDS: JANUMET PO SCH (08:01)
[2019-01-19] MEDS: Diltiazem 120 MG Cap.CD PO SCH (08:19)
[2019-01-19] MEDS: Amiodarone 200 MG Tab PO SCH (08:20)
[2019-01-19] MEDS: Apixaban 5 MG Tab PO SCH (08:23)
--- NOTE | 2019-01-19 10:52 | PCM.DCSUM1 ---
<Sharan Taylor - Last Filed: 01/19/19 13:45> Discharge Summary - Hospital Course Free Text/Narrative:: 63-year-old male admitted for new onset atrial fibrillation with RVR. Patient has a PMH of DM type 2, HTN and hyperlipidemia. Patient was asymptomatic on admission and throughout his hospitalization. Patient was started on IV diltiazem drip after unsuccessful rate control with PO medication. When trying to wean patient off of IV diltiazem drip his rate increased back to 130-140's. He was then started on an IV amiodarone drip and was successfully weaned off on PO amiodarone 200 mg qd, diltiazem CD 240 mg BID and metoprolol 25 mg BID. Cardiology was consulted who evaluated patient agreed with medication regimen. Patient was monitored on PO medications and patient remained rate controlled. He was also started on Eliquis 5 mg BID. His home olmesartan was discontinued so as not drop blood pressure too low. ECHO showed atrial fibrillation with EF > 65%. Patient requested cardiology follow-up visit with design quality engineer in [place], [place]. Appointment for follow-up was set up design quality engineer and PCP on discharge. - Discharge Data Discharge Date: 01/19/19 Discharge Disposition: Home, Self-Care 01 Condition: Stable - Referral to Home Health Primary Care Physician: Joseph Jay MD - Patient Instructions Diet: Heart Healthy Diet Activity: As Tolerated Notify Provider of: Fever, Increased Pain, Swelling and Redness, Drainage, Nausea and/or Vomiting - Discharge Plan *PRESCRIPTION DRUG MONITORING PROGRAM REVIEWED*: Not Applicable *COPY OF PRESCRIPTION DRUG MONITORING REPORT IN PATIENT BOAZ: Not Applicable Prescriptions/Med Rec: Amiodarone [Cordarone] 200 mg PO DAILY 30 Days #30 tablet Apixaban [Eliquis] 5 mg PO BID 30 Days #60 tablet Diltiazem [Cardizem CD] 240 mg PO BID 30 Days #60 cap.cd Metoprolol Tartrate [Lopressor] 25 mg PO BID 30 Days #60 tablet Home Medications: Home Meds sitaGLIPtin Phos/Metformin HCl [Janumet 50-1,000 MG] 50 - 1,000 mg PO BIDMEALS 11/25/16 [History] Empagliflozin [Jardiance] 25 mg PO DAILY 01/12/19 [History] Fenofibrate Nanocrystallized [Fenofibrate] 145 mg PO DAILY 01/12/19 [History] Amiodarone [Cordarone] 200 mg PO DAILY 30 Days #30 tablet 01/19/19 [Rx] Apixaban [Eliquis] 5 mg PO BID 30 Days #60 tablet 01/19/19 [Rx] Diltiazem [Cardizem CD] 240 mg PO BID 30 Days #60 cap.cd 01/19/19 [Rx] Metoprolol Tartrate [Lopressor] 25 mg PO BID 30 Days #60 tablet 01/19/19 [Rx] Patient Handouts: Metoprolol tablets, Heart-Healthy Eating Plan, Ococ-tz-Tetl, Apixaban oral tablets, Atrial Fibrillation, [id number]-[id number] Referrals: [facility] [Outside] Alexi Walls [Ordering Only Provider] - Josh Guerra MD [Physician] - 02/17/19 1:30 pm Dayne Turk [Ordering Only Provider] - (Dr. Turk's office will contact you with details regarding day of procedure and all instructions in preparation. ) Joseph Jay MD [Primary Care Provider] - 02/08/19 9:00 am - Discharge Summary/Plan Comment DC Time >30 min.: No - Patient Data Vitals - Most Recent: Last Vital Signs Temp 97.3 F 01/19/19 07:51 Pulse 68 01/19/19 08:19 Resp 18 01/19/19 07:51 BP 100/59 L 01/19/19 08:19 Pulse Ox 96 01/19/19 07:51 Weight - Most Recent: 124.6 kg I&O - Last 24 hours: Intake & Output 01/18/19 01/19/19 01/19/19 22:59 06:59 14:59 Intake Total 500 600 Output Total 600 825 Balance -100 -225 Lab Results - Last 24 hrs: Laboratory Results - last 24 hr 01/18/19 01/18/19 01/19/19 Range/Units 11:08 16:45 05:47 WBC 10.80 (4.0-11.0) K/uL RBC 5.45 (4.50-5.90) M/uL Hgb 15.4 (13.0-17.0) g/dL Hct 45.8 (38.0-50.0) % MCV 84.0 (80.0-98.0) fL MCH 28.3 (27.0-32.0) pg MCHC 33.6 (31.0-37.0) g/dL RDW Std Deviation 45.1 (28.0-62.0) fl RDW Coeff of [place] 15 (11.0-15.0) % Plt Count 223 (150-400) K/uL MPV 11.00 (7.40-12.00) fL Neut % (Auto) 74.7 (48.0-80.0) % Lymph % (Auto) 11.1 L (16.0-40.0) % [place] % (Auto) 9.7 (0.0-15.0) % Eos % (Auto) 4.1 (0.0-7.0) % Baso % (Auto) 0.4 (0.0-1.5) % Neut # (Auto) 8.1 H (1.4-5.7) K/uL Lymph # (Auto) 1.2 (0.6-2.4) K/uL [place] # (Auto) 1.1 H (0.0-0.8) K/uL Eos # (Auto) 0.4 (0.0-0.7) K/uL Baso # (Auto) 0.0 (0.0-0.1) K/uL Nucleated RBC % 0.0 /100WBC Nucleated RBCs # 0 K/uL Sodium (136-148) mmol/L Potassium (3.5-5.1) mmol/L Chloride (98-107) mmol/L Carbon Dioxide (21.0-32.0) mmol/L BUN (7.0-18.0) mg/dL Creatinine (0.8-1.3) mg/dL Est Cr Clr Drug Dosing mL/min Estimated GFR (MDRD) ml/min Glucose (74-106) mg/dL POC Glucose 171 H 158 H (60-110) mg/dL Calcium (8.5-10.1) mg/dL Phosphorus (2.6-4.7) mg/dL Magnesium (1.8-2.4) mg/dL Total Bilirubin (0.2-1.0) mg/dL AST (15-37) IU/L ALT (14-63) IU/L Alkaline Phosphatase (46-116) U/L Total Protein (6.4-8.2) g/dL Albumin (3.4-5.0) g/dL Globulin (2.6-4.0) g/dL Albumin/Globulin Ratio (0.9-1.6) 01/19/19 01/19/19 Range/Units 05:47 05:47 WBC (4.0-11.0) K/uL RBC (4.50-5.90) M/uL Hgb (13.0-17.0) g/dL Hct (38.0-50.0) % MCV (80.0-98.0) fL MCH (27.0-32.0) pg MCHC (31.0-37.0) g/dL RDW Std Deviation (28.0-62.0) fl RDW Coeff of [place] (11.0-15.0) % Plt Count (150-400) K/uL MPV (7.40-12.00) fL Neut % (Auto) (48.0-80.0) % Lymph % (Auto) (16.0-40.0) % [place] % (Auto) (0.0-15.0) % Eos % (Auto) (0.0-7.0) % Baso % (Auto) (0.0-1.5) % Neut # (Auto) (1.4-5.7) K/uL Lymph # (Auto) (0.6-2.4) K/uL [place] # (Auto) (0.0-0.8) K/uL Eos # (Auto) (0.0-0.7) K/uL Baso # (Auto) (0.0-0.1) K/uL Nucleated RBC % /100WBC Nucleated RBCs # K/uL Sodium 142 (136-148) mmol/L Potassium 4.6 (3.5-5.1) mmol/L Chloride 107 (98-107) mmol/L Carbon Dioxide 28.9 (21.0-32.0) mmol/L BUN 16 (7.0-18.0) mg/dL Creatinine 1.4 H (0.8-1.3) mg/dL Est Cr Clr Drug Dosing 53.83 mL/min Estimated GFR (MDRD) 51.2 ml/min Glucose 149 H (74-106) mg/dL POC Glucose 128 H (60-110) mg/dL Calcium 8.7 (8.5-10.1) mg/dL Phosphorus 3.2 (2.6-4.7) mg/dL Magnesium 1.9 (1.8-2.4) mg/dL Total Bilirubin 0.4 (0.2-1.0) mg/dL AST 25 (15-37) IU/L ALT 40 (14-63) IU/L Alkaline Phosphatase 51 (46-116) U/L Total Protein 6.2 L (6.4-8.2) g/dL Albumin 3.2 L (3.4-5.0) g/dL Globulin 3.0 (2.6-4.0) g/dL Albumin/Globulin Ratio 1.1 (0.9-1.6) Med Orders - Current: Current Medications Acetaminophen (Tylenol) 650 mg PO Q4H PRN PRN Reason: Pain (Mild 1-3)/fever Last Admin: 01/17/19 04:28 Dose: 650 mg Amiodarone HCl (Cordarone) 200 mg PO DAILY [facility] Last Admin: 01/19/19 08:20 Dose: 200 mg Apixaban (Eliquis) 5 mg PO BID [facility] Last Admin: 01/19/19 08:23 Dose: 5 mg Diltiazem HCl (Cardizem Cd) 240 mg PO BID [facility] Last Admin: 01/19/19 08:19 Dose: 240 mg Insulin Aspart (Novolog) 0 unit SUBCUT TIDAC [facility]; Protocol Last Admin: 01/19/19 06:44 Dose: Not Given Metoprolol Tartrate (Lopressor) 25 mg PO Q12H [facility] Last Admin: 01/19/19 00:05 Dose: 25 mg Ondansetron HCl (Zofran Odt) 4 mg PO Q4H PRN PRN Reason: nausea, able to take PO Ondansetron HCl (Zofran) 4 mg IVPUSH Q4H PRN PRN Reason: Nausea Janumet 50/1000mg 1 each PO BIDMEALS [facility] Last Admin: 01/19/19 08:01 Dose: 1 each Discontinued Medications Apixaban (Eliquis) 5 mg PO BID [facility] Stop: 01/12/19 15:36 Last Admin: 01/12/19 16:41 Dose: 5 mg Digoxin (Lanoxin) 500 mcg IVPUSH ONETIME ONE Stop: 01/15/19 09:52 Last Admin: 01/15/19 10:17 Dose: 500 mcg Digoxin (Lanoxin) 250 mcg IVPUSH Q6H [facility] Stop: 01/15/19 22:01 Diltiazem HCl (Diltiazem) 20 mg IVPUSH ONETIME ONE Stop: 01/12/19 15:24 Last Admin: 01/12/19 15:31 Dose: 20 mg Diltiazem HCl (Diltiazem) 20 mg IVPUSH ONETIME STA Stop: 01/12/19 16:39 Last Admin: 01/12/19 16:50 Dose: 20 mg Diltiazem HCl (Diltiazem) 20 mg IVPUSH ONETIME ONE Stop: 01/13/19 12:01 Last Admin: 01/13/19 12:53 Dose: Not Given Diltiazem HCl (Cardizem) 30 mg PO Q6H [facility] Last Admin: 01/15/19 03:49 Dose: 30 mg Diltiazem HCl (Cardizem) 60 mg PO Q8HR [facility] Last Admin: 01/16/19 05:54 Dose: 60 mg Diltiazem HCl (Cardizem) 90 mg PO Q8HR [facility] Last Admin: 01/17/19 06:06 Dose: 90 mg Diltiazem HCl 20 mg/ Sodium (Chloride) 104 mls @ 5 mls/hr IV ASDIRECTED [facility] Diltiazem HCl 125 mg/ Sodium (Chloride) 125 mls @ 5 mls/hr IV NOW [facility]; Protocol Last Titration: 01/14/19 12:32 Dose: 0 mg/hr, 0 mls/hr Sodium Chloride (Normal Saline) 500 mls @ 999 mls/hr IV STAT ONE Stop: 01/13/19 12:29 Last Admin: 01/13/19 12:31 Dose: 999 mls/hr Diltiazem HCl 100 mg/ Sodium (Chloride) 100 mls @ 5 mls/hr IV NOW [facility]; Protocol Last Titration: 01/15/19 08:25 Dose: 15 mg/hr, 15 mls/hr Sodium Chloride (Normal Saline) 500 mls @ 999 mls/hr IV STAT ONE Stop: 01/15/19 10:29 Last Admin: 01/15/19 10:21 Dose: 999 mls/hr Amiodarone HCl/Dextrose (Nexterone In Dextrose 360 Mg/200 Ml) 360 mg in 200 mls @ 33.333 mls/hr IV ASDIRECTED [facility]; Protocol Last Infusion: 01/18/19 03:45 Dose: 0 mg/min, 0 mls/hr Amiodarone HCl 150 mg/ (Dextrose/Water) 103 mls @ 600 mls/hr IV .BOLUS ONE Stop: 01/15/19 14:20 Last Admin: 01/15/19 14:06 Dose: 600 mls/hr Amiodarone HCl 150 mg/ (Dextrose/Water) 103 mls @ 600 mls/hr IV .BOLUS ONE Stop: 01/16/19 12:40 Last Admin: 01/16/19 12:34 Dose: 600 mls/hr Iopamidol (Isovue Multipack-370 (76%)) 50 ml IVPUSH ONETIME STA Stop: 01/16/19 17:48 Last Admin: 01/16/19 22:28 Dose: Not Given Iopamidol (Isovue-370 (76%)) 100 ml IVPUSH ONETIME STA Stop: 01/17/19 07:56 Last Admin: 01/17/19 07:56 Dose: 100 ml Magnesium Oxide (Magnesium Oxide) 800 mg PO ONETIME ONE Stop: 01/18/19 09:17 Last Admin: 01/18/19 09:31 Dose: 800 mg Metformin HCl (Glucophage) 1,000 mg PO BIDMEALS [facility] Last Admin: 01/18/19 07:31 Dose: Not Given Metoprolol Succinate (Toprol Xl) 25 mg PO ONETIME ONE Stop: 01/13/19 22:49 Last Admin: 01/13/19 23:13 Dose: 25 mg Metoprolol Tartrate (Lopressor) 25 mg PO Q12H [facility] Last Admin: 01/12/19 21:17 Dose: 25 mg Metoprolol Tartrate (Lopressor) 50 mg PO Q12H [facility] Last Admin: 01/14/19 05:17 Dose: 50 mg Metoprolol Tartrate (Lopressor) 25 mg PO ONETIME ONE Stop: 01/14/19 09:20 Last Admin: 01/14/19 10:05 Dose: 25 mg Metoprolol Tartrate (Lopressor) 75 mg PO Q12H [facility] Metoprolol Tartrate (Lopressor) Confirm Administered Dose 25 mg .ROUTE .STK-MED ONE Stop: 01/16/19 12:52 Last Admin: 01/16/19 22:28 Dose: Not Given Non-Formulary Medication (Sitagliptin Phos/Metformin Hcl [Janumet 50-1,000 Mg]) 1 tab PO BIDMEALS [facility] Last Admin: 01/17/19 11:12 Dose: Not Given Olmesartan/Amlodipin /Hcthiazid [Olmsrtn- Amldpn-Hctz 40-10 1 each PO DAILY [facility] Potassium Chloride (Klor-Con M20) 40 meq PO ONETIME ONE Stop: 01/12/19 17:49 Last Admin: 01/12/19 18:21 Dose: 40 meq Potassium Chloride (Klor-Con M20) 40 meq PO ONETIME ONE Stop: 01/18/19 09:17 Last Admin: 01/18/19 09:31 Dose: 40 meq Sitagliptin Phosphate (Januvia) 50 mg PO BIDMEALS [facility] Last Admin: 01/18/19 07:32 Dose: Not Given <Oliver Ramos - Last Filed: 01/21/19 19:43> Discharge Summary - Referral to Home Health Primary Care Physician: Joseph Jay MD - Patient Data Vitals - Most Recent: Last Vital Signs Temp 36.3 C 01/19/19 07:51 Pulse 68 01/19/19 08:19 Resp 18 01/19/19 07:51 BP 100/59 L 01/19/19 08:19 Pulse Ox 96 01/19/19 07:51 Med Orders - Current: Current Medications Discontinued Medications Acetaminophen (Tylenol) 650 mg PO Q4H PRN PRN Reason: Pain (Mild 1-3)/fever Last Admin: 01/17/19 04:28 Dose: 650 mg Amiodarone HCl (Cordarone) 200 mg PO DAILY [facility] Last Admin: 01/19/19 08:20 Dose: 200 mg Apixaban (Eliquis) 5 mg PO BID [facility] Stop: 01/12/19 15:36 Last Admin: 01/12/19 16:41 Dose: 5 mg Apixaban (Eliquis) 5 mg PO BID [facility] Last Admin: 01/19/19 08:23 Dose: 5 mg Digoxin (Lanoxin) 500 mcg IVPUSH ONETIME ONE Stop: 01/15/19 09:52 Last Admin: 01/15/19 10:17 Dose: 500 mcg Digoxin (Lanoxin) 250 mcg IVPUSH Q6H [facility] Stop: 01/15/19 22:01 Diltiazem HCl (Diltiazem) 20 mg IVPUSH ONETIME ONE Stop: 01/12/19 15:24 Last Admin: 01/12/19 15:31 Dose: 20 mg Diltiazem HCl (Diltiazem) 20 mg IVPUSH ONETIME STA Stop: 01/12/19 16:39 Last Admin: 01/12/19 16:50 Dose: 20 mg Diltiazem HCl (Diltiazem) 20 mg IVPUSH ONETIME ONE Stop: 01/13/19 12:01 Last Admin: 01/13/19 12:53 Dose: Not Given Diltiazem HCl (Cardizem) 30 mg PO Q6H [facility] Last Admin: 01/15/19 03:49 Dose: 30 mg Diltiazem HCl (Cardizem) 60 mg PO Q8HR [facility] Last Admin: 01/16/19 05:54 Dose: 60 mg Diltiazem HCl (Cardizem) 90 mg PO Q8HR [facility] Last Admin: 01/17/19 06:06 Dose: 90 mg Diltiazem HCl (Cardizem Cd) 240 mg PO BID [facility] Last Admin: 01/19/19 08:19 Dose: 240 mg Diltiazem HCl 20 mg/ Sodium (Chloride) 104 mls @ 5 mls/hr IV ASDIRECTED [facility] Diltiazem HCl 125 mg/ Sodium (Chloride) 125 mls @ 5 mls/hr IV NOW [facility]; Protocol Last Titration: 01/14/19 12:32 Dose: 0 mg/hr, 0 mls/hr Sodium Chloride (Normal Saline) 500 mls @ 999 mls/hr IV STAT ONE Stop: 01/13/19 12:29 Last Admin: 01/13/19 12:31 Dose: 999 mls/hr Diltiazem HCl 100 mg/ Sodium (Chloride) 100 mls @ 5 mls/hr IV NOW [facility]; Protocol Last Titration: 01/15/19 08:25 Dose: 15 mg/hr, 15 mls/hr Sodium Chloride (Normal Saline) 500 mls @ 999 mls/hr IV STAT ONE Stop: 01/15/19 10:29 Last Admin: 01/15/19 10:21 Dose: 999 mls/hr Amiodarone HCl/Dextrose (Nexterone In Dextrose 360 Mg/200 Ml) 360 mg in 200 mls @ 33.333 mls/hr IV ASDIRECTED [facility]; Protocol Last Infusion: 01/18/19 03:45 Dose: 0 mg/min, 0 mls/hr Amiodarone HCl 150 mg/ (Dextrose/Water) 103 mls @ 600 mls/hr IV .BOLUS ONE Stop: 01/15/19 14:20 Last Admin: 01/15/19 14:06 Dose: 600 mls/hr Amiodarone HCl 150 mg/ (Dextrose/Water) 103 mls @ 600 mls/hr IV .BOLUS ONE Stop: 01/16/19 12:40 Last Admin: 01/16/19 12:34 Dose: 600 mls/hr Insulin Aspart (Novolog) 0 unit SUBCUT TIDAC [facility]; Protocol Last Admin: 01/19/19 06:44 Dose: Not Given Iopamidol (Isovue Multipack-370 (76%)) 50 ml IVPUSH ONETIME STA Stop: 01/16/19 17:48 Last Admin: 01/16/19 22:28 Dose: Not Given Iopamidol (Isovue-370 (76%)) 100 ml IVPUSH ONETIME STA Stop: 01/17/19 07:56 Last Admin: 01/17/19 07:56 Dose: 100 ml Magnesium Oxide (Magnesium Oxide) 800 mg PO ONETIME ONE Stop: 01/18/19 09:17 Last Admin: 01/18/19 09:31 Dose: 800 mg Metformin HCl (Glucophage) 1,000 mg PO BIDMEALS [facility] Last Admin: 01/18/19 07:31 Dose: Not Given Metoprolol Succinate (Toprol Xl) 25 mg PO ONETIME ONE Stop: 01/13/19 22:49 Last Admin: 01/13/19 23:13 Dose: 25 mg Metoprolol Tartrate (Lopressor) 25 mg PO Q12H [facility] Last Admin: 01/12/19 21:17 Dose: 25 mg Metoprolol Tartrate (Lopressor) 50 mg PO Q12H [facility] Last Admin: 01/14/19 05:17 Dose: 50 mg Metoprolol Tartrate (Lopressor) 25 mg PO ONETIME ONE Stop: 01/14/19 09:20 Last Admin: 01/14/19 10:05 Dose: 25 mg Metoprolol Tartrate (Lopressor) 75 mg PO Q12H [facility] Metoprolol Tartrate (Lopressor) 25 mg PO Q12H [facility] Last Admin: 01/19/19 00:05 Dose: 25 mg Metoprolol Tartrate (Lopressor) Confirm Administered Dose 25 mg .ROUTE .STK-MED ONE Stop: 01/16/19 12:52 Last Admin: 01/16/19 22:28 Dose: Not Given Non-Formulary Medication (Sitagliptin Phos/Metformin Hcl [Janumet 50-1,000 Mg]) 1 tab PO BIDMEALS [facility] Last Admin: 01/17/19 11:12 Dose: Not Given Ondansetron HCl (Zofran Odt) 4 mg PO Q4H PRN PRN Reason: nausea, able to take PO Ondansetron HCl (Zofran) 4 mg IVPUSH Q4H PRN PRN Reason: Nausea Olmesartan/Amlodipin /Hcthiazid [Olmsrtn- Amldpn-Hctz 40-10 1 each PO DAILY [facility] Janumet 50/1000mg 1 each PO BIDMEALS [facility] Last Admin: 01/19/19 08:01 Dose: 1 each Potassium Chloride (Klor-Con M20) 40 meq PO ONETIME ONE Stop: 01/12/19 17:49 Last Admin: 01/12/19 18:21 Dose: 40 meq Potassium Chloride (Klor-Con M20) 40 meq PO ONETIME ONE Stop: 01/18/19 09:17 Last Admin: 01/18/19 09:31 Dose: 40 meq Sitagliptin Phosphate (Januvia) 50 mg PO BIDMEALS [facility] Last Admin: 01/18/19 07:32 Dose: Not Given - Free Text/Narrative Note: I have seen and examined the patient with the resident. I have discussed findings and treatment plan with the resident. I agree with the assessment and plan outlined in the following note.
--- NOTE | 2019-01-19 19:38 | CONS ---
DATE OF CONSULTATION: DATE OF : 1955 PRIMARY CARE PHYSICIAN: Joseph Jay MD REASON FOR CONSULTATION: AFlutter and RVR. HISTORY OF PRESENT ILLNESS: This is a 63-year-old male who has a past medical history of hypertension, hyperlipidemia, and well controlled diabetes. He was directly admitted to the hospital from his primary care doctor's clinic because of tachycardia. He was in his doctor office for routine DM check up. When he was taken the vital signs, the heart rate was 140. He was feeling well. Denied any symptom of chest pain, dizziness, or shortness of breath, SInce he was admitted in the hospital several medications had been started. At home, he was taking olmesartan as well as fenofibrate; and currently, he is on metoprolol 25 mg twice a day as well as the diltiazem 30 q.6 hours and amiodarone was also started IV drip followed by PO. Eliquis also was started. He had an echocardiogram done while he is in the hospital, which showed preserved ejection fraction. No significant valvular abnormalities. He also had the CT angiogram of the chest, and it was noted as nondiagnostic for PE protocol. However, there is no acute airspace disease. He is still feeling okay and no symptom of chest pain, palpitation, or feeling dizzy. He also has been able to walk around without any problems, and his heart rate now has been well controlled in the range of 80 to 90s, but if he walks around his heart rate could be up to like 120 to 130 without any symptoms. His blood pressure has been well controlled in the range of 110 to 120. ALLERGIES: He has no known drug allergies. PAST MEDICAL HISTORY: Include BPH; brain injuries; diabetes; hypertension; obesity; hyperlipidemia; and sleep apnea, using CPAP. PAST SURGICAL HISTORY: Abdominal hernia surgery. REVIEW OF SYSTEMS: 10 ROS negative except in HPI. CURRENT MEDICATIONS: Include; 1. Eliquis 5 mg twice a day. 2. Amiodarone 200 mg once a day. 3. Diltiazem 240 mg twice a day. 4. Metoprolol 25 mg twice a day. PHYSICAL EXAMINATION: VITAL SIGNS: On the day when I saw him on the , his heart rate was ranging between 80 to 90, with activities 120; O2 saturation is 95 on 2 L or 96 on room air; respiration was 18; blood pressure was 110/69; and temperature 97.4. HEENT: Not pale. No jaundice. NECK: No JVD. HEART: Normal S1 and S2. Tachycardia. Regular rate and rhythm. LUNGS: Clear. ABDOMEN: Soft and nontender. Bowel sounds are present. No hepatosplenomegaly. EXTREMITIES: Maybe trace edema. LABORATORIES AND IMAGING DATA: EKG: On 01/12/2019, show atrial flutter, seem to be typical atrial flutter, with the rate of 135, QRS duration is 138 with a complete right bundle. Echocardiogram on January 12, 2019, ejection fraction of 60% to 65%. No significant valvular disease. CBC showed WBC 10, hematocrit of 17, hemoglobin of 6, and platelet of 227. Sodium 140, potassium 4.1, chloride 105, bicarb 25, BUN 22, and creatinine 1.5. A1c 7.6. BNP was normal. Troponin was negative x1. TSH is normal as well. LDL is 43. ASSESSMENT: This is a 63-year-old male, who has a history of hypertension, hyperlipidemia, and diabetes well controlled, came in with asymptomatic atrial flutter and rapid ventricular response. CHADS-VASc score is at least 2. He should be on long- term anticoagulation. EKG looks to me like the typical flutter that could be treated by CTI ablation. His heart rate today has been well controlled. I recommended to continue current medication including diltiazem 240 twice a day as well as metoprolol of 25 twice a day and amiodarone 200 mg once a day as well as Eliquis. I will refer him to EPS for the possible AFlutter ablation. If the AFlutter is treated, the anticoagulation may be discontinued, but I would defer to the [facility]. Currently, he is asymptomatic for AFlutter. However, his heart rate is fluctuated. I think this can be treated. Regarding CPAP treatment, I recommended them to have the CPAP machine to be checked and the medical equipment store. It has not been checked for almost more than 20 years. The patient's is concerned about low oxygen level when he was sleeping, and if the machine seem to be working properly, he will need to have a repeat sleep study with a CPAP machine titration. JANA / NOE /[id number] KIP
== END 2019-01-19 11:35 | disposition home or self-care (01) | DRG 201 ==
LOC: MW.MS 14:22 → MW.ICU 18:05 → MW.MS 18:30 → OBSVTOIN 19:20 → INTOOBSV 19:20 → OBSVTOIN 01-14 09:20 → INTOOBSV 01-14 09:20 → OBSVTOIN 01-14 18:30
PROVIDERS: ADMIT Internal Medicine; ATTEND Internal Medicine
DX: I48.91 Unspecified atrial fibrillation (principal); J96.01 Acute respiratory failure with hypoxia; I10 Essential (primary) hypertension; E78.5 Hyperlipidemia, unspecified; I48.92 Unspecified atrial flutter; E11.65 Type 2 diabetes mellitus with hyperglycemia; G47.33 Obstructive sleep apnea (adult) (pediatric); E66.9 Obesity, unspecified; Z79.899 Other long term (current) drug therapy; Z68.41 Body mass index [BMI] 40.0-44.9, adult
CPT/HCPCS: 36415; 71046; 71046-26; 71275; 71275-26; 80048; 80053; 80061; 81001; 82962; 83036; 83735; 83880; 84100; 84443; 84484; 85025; 85379; 93005; 93306; A9270-GY; J0282; J1160; J3490; J7030; J7040; J7050; J7060; Q9967

== ENCOUNTER 2019-01-23 22:38 | Emergency (ER) | payer BC ==
--- NOTE | 2019-01-23 23:14 | EDM.PDOC ---
ED HPI GENERAL MEDICAL PROBLEM - General Chief Complaint: Lower Extremity Injury/Pain Stated Complaint: SWOLLEN ANKLES Time Seen by Provider: 01/23/19 23:05 - History of Present Illness INITIAL COMMENTS - FREE TEXT/NARRATIVE: HISTORY AND PHYSICAL: History of present illness: The patient is a 63-year-old male who was recently admitted here for new a flutter and was started on new medications including diltiazem Eliquis, amiodarone and is scheduled to be seen in [place] by a supervisor laboratory animal facility for EP studies and possible ablation and who was been doing very well since his discharge without any fevers chills chest pain shortness of breath abdominal pain or vomiting; he presents because he noticed some swelling of his ankles and lower legs bilaterally this evening and was concerned. He has no pain in the area and has been eating and drinking normally with normal urine output. He says that he has no other complaints and only came in because of his recent admission and because of concern about this welling. Review of systems: As per history of present illness and below otherwise all systems reviewed and negative. Past medical history: As per history of present illness and as reviewed below otherwise noncontributory. Surgical history: As per history of present illness and as reviewed below otherwise noncontributory. Social history: No reported history of drug or alcohol abuse. Family history: As per history of present illness and as reviewed below otherwise noncontributory. Physical exam: General: Well-developed well-nourished very overweight man with truncal obesity but who is speaking clearly and easily in the ED without breathlessness and vital signs are noted by me HEENT: Atraumatic, normocephalic, negative for conjunctival pallor or scleral icterus, mucous membranes moist, throat clear, neck supple, nontender, trachea midline. Lungs: Clear to auscultation, breath sounds equal bilaterally, chest nontender. There is some slightly diminished breath sounds in the bases but there is no wheezing or stridor rales or work of breathing Heart: S1S2, regular rate but irregular rhythm consistent with his a flutter, negative for clicks, rubs, or JVD. Abdomen: Soft, nondistended, nontender. Negative for masses or hepatosplenomegaly. Negative for costovertebral tenderness. Pelvis: Stable nontender. Genitourinary: Deferred. Rectal: Deferred. Extremities: Atraumatic, negative for cords or calf pain. Neurovascular unremarkable. There is no leg asymmetry and no calf tenderness but there is trace pretibial edema and 1+ ankle edema bilaterally without any erythema or tenderness Neuro: Awake, alert, oriented. Cranial nerves II through XII unremarkable. Cerebellum unremarkable. Motor and sensory unremarkable throughout. Exam nonfocal. Diagnostics: EKG CBC CMP chest x-ray UA BNP Therapeutics: Impression: Lower extremity edema with recent new diagnosis of a flutter stable Definitive disposition and diagnosis as appropriate pending reevaluation and review of above. - Related Data Allergies Allergy/AdvReac Type Severity Reaction Status Date / Time No Known Allergies Allergy Verified 01/12/19 17:48 Home Meds: Home Meds sitaGLIPtin Phos/Metformin HCl [Janumet 50-1,000 MG] 50 - 1,000 mg PO BIDMEALS 11/25/16 [History] Empagliflozin [Jardiance] 25 mg PO DAILY 01/12/19 [History] Fenofibrate Nanocrystallized [Fenofibrate] 145 mg PO DAILY 01/12/19 [History] Amiodarone [Cordarone] 200 mg PO DAILY 30 Days #30 tablet 01/19/19 [Rx] Apixaban [Eliquis] 5 mg PO BID 30 Days #60 tablet 01/19/19 [Rx] Diltiazem [Cardizem CD] 240 mg PO BID 30 Days #60 cap.cd 01/19/19 [Rx] Metoprolol Tartrate [Lopressor] 25 mg PO BID 30 Days #60 tablet 01/19/19 [Rx] Past Medical History Other HEENT History: wears glasses Cardiovascular History: Reports: Arrhythmia, High Cholesterol, Hypertension Other Cardiovascular History: atrial flutter Respiratory History: Reports: Sleep Apnea Other Respiratory History: uses CPAP Genitourinary History: Reports: BPH Neurological History: Reports: Brain Injury Other Neuro History: closed head injury 5 years ago with brain bleed Endocrine/Metabolic History: Reports: Diabetes, Type II, Obesity/BMI 30+ - Infectious Disease History Infectious Disease History: Reports: Chicken Pox, Measles - Past Surgical History GI Surgical History: Reports: Hernia, Abdominal Other GI Surgeries/Procedures: Umbilical hernia repair Social & Family History - Family History Family Medical History: Noncontributory - Tobacco Use Smoking Status *Q: Never Smoker - Caffeine Use Caffeine Use: Reports: Coffee - Recreational Drug Use Recreational Drug Use: No Review of Systems - Review of Systems Review Of Systems: Comprehensive ROS is negative, except as noted in HPI. ED EXAM, GENERAL - Physical Exam Exam: See Below (see dictation) Course - Vital Signs Last Recorded V/S: Last Vital Signs Temp 36.3 C 01/23/19 22:44 Pulse 114 H 01/23/19 22:44 Resp 18 01/23/19 22:44 BP 156/82 H 01/23/19 22:44 Pulse Ox 94 L 01/23/19 22:44 - Orders/Labs/Meds Orders: Active Orders 24 hr Category Date Time Status EKG Documentation Completion [RC] STAT Care 01/23/19 22:59 Active Labs: Laboratory Tests 01/23/19 01/23/19 01/23/19 Range/Units 23:10 23:15 23:15 WBC 8.41 (4.0-11.0) K/uL RBC 5.61 (4.50-5.90) M/uL Hgb 15.9 (13.0-17.0) g/dL Hct 46.1 (38.0-50.0) % MCV 82.2 (80.0-98.0) fL MCH 28.3 (27.0-32.0) pg MCHC 34.5 (31.0-37.0) g/dL RDW Std Deviation 43.3 (28.0-62.0) fl RDW Coeff of [place] 15 (11.0-15.0) % Plt Count 219 (150-400) K/uL MPV 10.40 (7.40-12.00) fL Neut % (Auto) 65.5 (48.0-80.0) % Lymph % (Auto) 21.5 (16.0-40.0) % [place] % (Auto) 8.2 (0.0-15.0) % Eos % (Auto) 4.3 (0.0-7.0) % Baso % (Auto) 0.5 (0.0-1.5) % Neut # (Auto) 5.5 (1.4-5.7) K/uL Lymph # (Auto) 1.8 (0.6-2.4) K/uL [place] # (Auto) 0.7 (0.0-0.8) K/uL Eos # (Auto) 0.4 (0.0-0.7) K/uL Baso # (Auto) 0.0 (0.0-0.1) K/uL Nucleated RBC % 0.0 /100WBC Nucleated RBCs # 0 K/uL Sodium 143 (136-148) mmol/L Potassium 3.8 (3.5-5.1) mmol/L Chloride 105 (98-107) mmol/L Carbon Dioxide 28.7 (21.0-32.0) mmol/L BUN 20 H (7.0-18.0) mg/dL Creatinine 1.5 H (0.8-1.3) mg/dL Est Cr Clr Drug Dosing 52.05 mL/min Estimated GFR (MDRD) 47.3 ml/min Glucose 144 H (74-106) mg/dL Calcium 9.4 (8.5-10.1) mg/dL Total Bilirubin 0.3 (0.2-1.0) mg/dL AST 19 (15-37) IU/L ALT 75 H (14-63) IU/L Alkaline Phosphatase 67 (46-116) U/L B-Natriuretic Peptide (<100) PG/ML Total Protein 6.9 (6.4-8.2) g/dL Albumin 3.7 (3.4-5.0) g/dL Globulin 3.2 (2.6-4.0) g/dL Albumin/Globulin Ratio 1.2 (0.9-1.6) Urine Color YELLOW Urine Appearance CLEAR Urine pH 7.5 (5.0-8.0) Ur Specific [place] 1.015 (1.001-1.035) Urine Protein NEGATIVE (NEGATIVE) mg/dL Urine Glucose (UA) >=1000 (NEGATIVE) mg/dL Urine Ketones NEGATIVE (NEGATIVE) mg/dL Urine Occult Blood NEGATIVE (NEGATIVE) Urine Nitrite NEGATIVE (NEGATIVE) Urine Bilirubin NEGATIVE (NEGATIVE) Urine Urobilinogen 0.2 (<2.0) EU/dL Ur Leukocyte Esterase NEGATIVE (NEGATIVE) 01/23/19 Range/Units 23:15 WBC (4.0-11.0) K/uL RBC (4.50-5.90) M/uL Hgb (13.0-17.0) g/dL Hct (38.0-50.0) % MCV (80.0-98.0) fL MCH (27.0-32.0) pg MCHC (31.0-37.0) g/dL RDW Std Deviation (28.0-62.0) fl RDW Coeff of [place] (11.0-15.0) % Plt Count (150-400) K/uL MPV (7.40-12.00) fL Neut % (Auto) (48.0-80.0) % Lymph % (Auto) (16.0-40.0) % [place] % (Auto) (0.0-15.0) % Eos % (Auto) (0.0-7.0) % Baso % (Auto) (0.0-1.5) % Neut # (Auto) (1.4-5.7) K/uL Lymph # (Auto) (0.6-2.4) K/uL [place] # (Auto) (0.0-0.8) K/uL Eos # (Auto) (0.0-0.7) K/uL Baso # (Auto) (0.0-0.1) K/uL Nucleated RBC % /100WBC Nucleated RBCs # K/uL Sodium (136-148) mmol/L Potassium (3.5-5.1) mmol/L Chloride (98-107) mmol/L Carbon Dioxide (21.0-32.0) mmol/L BUN (7.0-18.0) mg/dL Creatinine (0.8-1.3) mg/dL Est Cr Clr Drug Dosing mL/min Estimated GFR (MDRD) ml/min Glucose (74-106) mg/dL Calcium (8.5-10.1) mg/dL Total Bilirubin (0.2-1.0) mg/dL AST (15-37) IU/L ALT (14-63) IU/L Alkaline Phosphatase (46-116) U/L B-Natriuretic Peptide 221 H (<100) PG/ML Total Protein (6.4-8.2) g/dL Albumin (3.4-5.0) g/dL Globulin (2.6-4.0) g/dL Albumin/Globulin Ratio (0.9-1.6) Urine Color Urine Appearance Urine pH (5.0-8.0) Ur Specific [place] (1.001-1.035) Urine Protein (NEGATIVE) mg/dL Urine Glucose (UA) (NEGATIVE) mg/dL Urine Ketones (NEGATIVE) mg/dL Urine Occult Blood (NEGATIVE) Urine Nitrite (NEGATIVE) Urine Bilirubin (NEGATIVE) Urine Urobilinogen (<2.0) EU/dL Ur Leukocyte Esterase (NEGATIVE) Departure - Departure Time of Disposition: 00:48 Disposition: Home, Self-Care 01 Condition: Good Clinical Impression: Lower extremity edema - Discharge Information Referrals: PCP,None [Primary Care Provider] - Forms: ED Department Discharge Additional Instructions: The following information is given to patients seen in the emergency department who are being discharged to home. This information is to outline your options for follow-up care. We provide all patients seen in our emergency department with a follow-up referral. The need for follow-up, as well as the timing and circumstances, are variable depending upon the specifics of your emergency department visit. If you don't have a primary care physician on staff, we will provide you with a referral. We always advise you to contact your personal physician following an emergency department visit to inform them of the circumstance of the visit and for follow-up with them and/or the need for any referrals to a consulting specialist. The emergency department will also refer you to a specialist when appropriate. This referral assures that you have the opportunity for followup care with a specialist. All of these measure are taken in an effort to provide you with optimal care, which includes your followup. Under all circumstances we always encourage you to contact your private physician who remains a resource for coordinating your care. When calling for followup care, please make the office aware that this follow-up is from your recent emergency room visit. If for any reason you are refused follow-up, please contact the [facility] emergency department at and ask to speak to the emergency department charge nurse. [facility] Primary [facility]- Internal Medicine and Family [address] [address] Please follow-up with your provider in the clinic to discuss tonight's events in the ED and your lab tests. Elevate your legs as much as possible and try to reduce and/or eliminate sodium and salt in your diet. Return to ER as needed and as discussed and continue all home medications Sepsis Event Note - Evaluation Sepsis Screening Result: No Definite Risk - Focused Exam Vital Signs: Vital Signs Temp Pulse Resp BP Pulse Ox 01/23/19 22:44 36.3 C 114 H 18 156/82 H 94 L Date Exam was Performed: 01/24/19 Time Exam was Performed: 00:47 - My Orders Last 24 Hours: My Active Orders 01/23/19 22:59 EKG Documentation Completion [RC] STAT - Assessment/Plan Last 24 Hours: My Active Orders 01/23/19 22:59 EKG Documentation Completion [RC] STAT
[2019-01-23 23:38] LABS: CARBON DIOXIDE,CO2 28.7 mmol/L (21.0-32.0); POTASSIUM,K 3.8 mmol/L (3.5-5.1)
--- NOTE | 2019-01-24 00:15 | CR ---
HISTORY: Dyspnea. Left leg swelling. COMPARISON: CT of the chest from 01/16/2019 and chest radiograph from 01/13/2019. FINDINGS: A portable erect AP view of the chest was obtained at 23 18 hours. The lungs remain clear. No focal or diffuse infiltrates are present. The previously seen mild bilateral subpleural fat is less evident on today`s study. The heart remains top-normal in size. The mediastinum is normal in appearance. The osseous structures are normal in appearance for the patient`s age. IMPRESSION: Normal portable chest single view. Dictated by Randolph Artis MD @ Jan 24 2019 12:11AM Signed by Dr. Randolph Artis @ Jan 24 2019 12:13AM
== END 2019-01-24 00:55 | disposition home or self-care (01) ==
LOC: MW.ED 22:38
DX: R60.0 Localized edema (principal); I48.92 Unspecified atrial flutter; E78.00 Pure hypercholesterolemia, unspecified; I10 Essential (primary) hypertension; G47.30 Sleep apnea, unspecified; E11.9 Type 2 diabetes mellitus without complications; E66.9 Obesity, unspecified; Z68.39 Body mass index [BMI] 39.0-39.9, adult; Z79.01 Long term (current) use of anticoagulants; Z79.899 Other long term (current) drug therapy; Z79.84 Long term (current) use of oral hypoglycemic drugs
CPT/HCPCS: 36415; 71045; 71045-26; 80053; 81003; 83880; 85025; 93005; 99283; 99284-25